=== PATIENT | female | born 1950 | race Caucasian/White ===

== ENCOUNTER 2019-03-24 07:40 | Outpatient (CLI) | payer MEDICARE, OTHER, SELFPAY ==
--- NOTE | 2019-03-24 08:00 | USCV_ITS ---
Mindi Quispe Age: 69 Gender: F : 1950 Exam Date: 03/24/2019 08:06 Ordering Phys: Pati Dyer MD Technologist: Cecilia Hernandez Exam Location: [facility] – [place] Indication: LT CAROTID BRUIT Risk Factors: Previous Vascular Surgery: None Right Brachial BP: / Left Brachial BP: / Right Left Velocity (cm/s) Spectral Plaque Velocity (cm/s) Spectral Plaque Syst/Diast Broadening Syst/Diast Broadening 91.50/ 14.30 Prox CCA 90.10 / 12.90 69.70/ 10.10 Mid CCA 79.80 / 14.60 65.10/ 12.10 Distal CCA 85.80 / 18.90 93.80/ 14.10 Prox ICA 109.40/ 16.40 77.80/ 11.30 Mid ICA 82.80 / 14.30 71.30/ 14.10 Distal ICA 73.60 / 15.30 81.60 ECA 85.80 1.34 ICA/CCA 1.37 Antegrade Vertebral Antegrade 57.20/ 9.40 cm/s 46.50/ 13.30 cm/s Bi Subclavian Bi 105.0 64.50 0 FINDINGS Moderate atherosclerotic plaque at both carotid bifurcations. CONCLUSIONS Negative for significant carotid stenosis or occlusion. Dr. Zaida Hutton MD (Electronically Signed) Final Date: 24 March 2019 09:37 S
--- NOTE | 2019-03-24 08:45 | USCV_ITS ---
Mindi Quispe Age: 69 Gender: F : 1950 Exam Date: 03/24/2019 08:36 Ordering Phys: Pati Dyer MD Technologist: Cecilia Hernandez Exam Location: [facility] – [place] Indication: LT LEG PAIN, PVD Risk Factors: Previous Vascular Surgery: None RIGHT LEFT BP: 200.0 / BP: 224.0/ 0 0 Waveform Velocity (cm/s) Velocity (cm/s) Waveform Biphasic 145.7 Iliac Prox 65.1 Monophasic Biphasic 145.7 Iliac Mid 82.1 Monophasic Biphasic 141.0 Iliac Distal 74.2 Monophasic Biphasic 143.0 FLOOR STEWARD/STEWARDESS 63.7 Monophasic Biphasic 141.2 SFA Prox 57.6 Monophasic Biphasic 74.3 SFA Mid 59.9 Monophasic Biphasic 67.9 SFA Dist 52.9 Monophasic Biphasic 45.7 POP 23.7 Monophasic Biphasic 32.7 CASING IN LINE FEEDER 27.6 Monophasic Biphasic 45.1 DPA 20.6 Monophasic CHIOMA 0.2 0.8 FINDINGS Abnormal resting ABIs bilaterally Biphasic Doppler waveforms in the right side Monophasic continuous low velocity Doppler waveforms in the left side CONCLUSIONS Severely diminished resting CHIOMA of 0.2 on the left side, suggestive of high-grade lesion in the proximal iliac artery with possible collateral filling. Mild peripheral artery disease on the right side with an CHIOMA of 0.84 Dr Alissa Castillo MD [facility] (Electronically Signed) Final Date: 25 March 2019 00:06 S
== END 2019-03-24 07:41 | disposition home or self-care (01) ==
PROVIDERS: Family Provider Family Medicine; PCP Family Medicine; Visit Provider Family Medicine
DX: I73.9 Peripheral vascular disease, unspecified (principal); M79.605 Pain in left leg; R09.89 Other specified symptoms and signs involving the circulatory and respiratory systems
CPT/HCPCS: 93880; 93925

== ENCOUNTER → 2019-04-25 13:50 | Outpatient (BNVA) | payer MEDICARE, OTHER, SELFPAY | PROVIDERS: Family Provider Family Medicine; PCP Family Medicine; Referring Provider Family Medicine; Visit Provider Internal Medicine Cardiovascular Disease | DX: I73.9 Peripheral vascular disease, unspecified (principal); I10 Essential (primary) hypertension | CPT/HCPCS: 80048 ==

== ENCOUNTER 2019-05-04 10:25 | Outpatient (CLI) | payer MEDICARE, OTHER, SELFPAY ==
--- NOTE | 2019-05-04 10:30 | CT_ITS ---
WS: [id number] CT ANGIOGRAPHY OF THE ABDOMINAL AORTA WITH RUNOFF TO THE ANKLES HISTORY: Peripheral vascular disease/ Lifestyle limiting claudication TECHNIQUE: Arterial injection is performed during imaging to evaluate the aorta and runoff vessels to the ankles. MIP and volume rendering imaging has also been performed. All images are reviewed. All C T scans at [facility] use at least one of these dose optimization techniques: automated ex posure control; mA and/or kV adjustment per patient size (includes targeted exams where dose is match ed to clinical indication); or iterative reconstruction. Contrast: Omnipaque 350; 95 mL IV. DLP: 1047.54 mGy.cm COMPARISON: 03/24/2019 Chronic emphysematous changes at the lung bases. Mild enlargement of the heart chambers. Single galls tone noted in the gallbladder. Early enhancement of the liver, pancreas, spleen, adrenal glands and k idneys demonstrates no acute abnormalities. There are a few small cortical cysts in the RIGHT kidney. No adenopathy or free fluid. Abdominal aorta: Extensive calcified and noncalcified plaque throughout the abdominal aorta. Some of plaque is irregular with some mild stenosis in the distal aorta just above the bifurcation. Calcified plaque at the origins of the celiac axis and SMA. No significant stenosis. Very heavy calcification in the splenic artery. Inferior mesenteric artery still patent. RIGHT lower extremity arterial system: Heavy calcified plaque at the origin of the RIGHT common iliac artery. Significant stenosis greater than 70%. Distal common iliac artery is patent with calcified p laque. Multifocal areas of mild stenosis throughout the external iliac to the femoral artery. Focal s tenosis of 71% in the RIGHT common femoral artery. Superficial femoral artery and deep profunda are b oth intact with mild multilevel areas of stenosis. Popliteal artery is normal caliber. Three-vessel r unoff to the ankle although the arteries are small. LEFT lower extremity arterial system: Moderate calcified plaque and intimal thickening involving the origin and proximal common iliac artery. Multifocal stenosis throughout the common iliac artery. Ther e is significant stenosis with complete occlusion at the bifurcation. External iliac artery is comple tely occluded. Reconstitution of the artery in the distal common femoral artery. There is still calci fied plaque. Profunda and superficial femoral artery are small caliber. There is additional plaque of 50% stenosis of the distal SFA. 54% stenosis at the LEFT popliteal artery. Three-vessel runoff to th e ankle although the arteries are very small caliber. Thoracolumbar scoliosis and degenerative disc disease and osteopenia. There is a small amount of free fluid in the pelvis. Cystic collection in the LEFT adnexa measures 2. [address]/CT angio abd aorta runof [id number] IMPRESSION: 1. 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 2. 54% stenosis LEFT popliteal artery. 3. 70% stenosis origin RIGHT common iliac artery. 4. Multifocal areas of mild stenosis throughout the RIGHT external iliac arter y to the femoral artery. 5. RIGHT common femoral artery stenosis 71%. Visually the stenosis appears indio ser to 50%. 6. Small amount of free fluid in the pelvis and a LEFT adnexal cystic collecti on. Recommend follow-up transvaginal imaging. Etiology of fluid is not determin ed. 7. Cholelithiasis without acute cholecystitis. 8. Mild abdominal aorta stenosis at the bifurcation.
[2019-05-04] MEDS: iohexol 350 mg/mL 100 mL Btl IV (11:08)
== END 2019-05-04 10:26 | disposition home or self-care (01) ==
LOC: CT 10:28
PROVIDERS: Family Provider Family Medicine; PCP Family Medicine; Visit Provider Internal Medicine Cardiovascular Disease
DX: I74.5 Embolism and thrombosis of iliac artery (principal); K80.20 Calculus of gallbladder without cholecystitis without obstruction; I71.4 Abdominal aortic aneurysm, without rupture; I70.292 Other atherosclerosis of native arteries of extremities, left leg; I70.92 Chronic total occlusion of artery of the extremities
CPT/HCPCS: 75635

== ENCOUNTER → 2019-08-12 08:40 | Outpatient (BNVA) | payer MEDICARE, OTHER, SELFPAY | PROVIDERS: Family Provider Family Medicine; PCP Family Medicine; Visit Provider Internal Medicine Cardiovascular Disease | DX: I73.9 Peripheral vascular disease, unspecified (principal) | CPT/HCPCS: 80048; 85025 ==

== ENCOUNTER 2019-08-17 07:41 | Day surgery (SDC) | payer MEDICARE, OTHER, SELFPAY ==
[2019-08-13 20:02] LABS: Quest SARS-CoV-2 RNA NOT DETECTED (NOT DETECTED)
[2019-08-16 12:57] VITALS: BMI 20.9
[2019-08-17] VITALS (20 sets, daily range): BP systolic 131–244; BP diastolic 55–107; PULSE 83–100; RESP 14–16; TEMP 36.8–37; O2SAT 91–97
--- NOTE | 2019-08-17 07:30 | XACV_ITS ---
Wt: 54 kg BSA: 1.54 m2 Gender: Female : 1950 Exam Type: Invasive Peripheral Vascular Procedure(s): Procedure Description: Peripheral Cath Diagnostic Procedure Procedure Description: Abdominal aortic angiography Procedure Description: Lower extremities' angiography Procedure Description: Peripheral vascular Intervention Procedure Description: PV Balloon Procedure Description: PV Atherectomy Exam Priority: Routine Lower Extremity Interventional Findings Posterior tibial approach of the left leg was adopted to cross the proximal mid SFA common femoral, external iliac and common iliac artery into the aorta. Viper wire was exchanged through seeker catheter. CSI atherectomy using 2 mm bur was performed in left common iliac, left external iliac, left common femoral and proximal left SFA followed by multiple balloon angioplasty using Red Bud 6 x 100 x 135 mm balloon in common iliac, external iliac, common femoral and proximal femoral artery with good angiographic result. Good two-vessel runoff was noted below the knee however we try to approach proximal anterior tibial artery which is chronically occluded through left posterior tibial artery due to acute angle we were not able to cross therefore it was decided to see how patient performe if she continues to be symptomatic with claudication we may will bring her back and go from right common femoral approach to open up left anterior tibial artery, otherwise patient has reasonable good flow now in the leg and foot , patient has good dopperlable pule both anterior and posterior tibial area therefore we will accept the result now. Conclusions Peripheral Procedure Description: Critical limb ischemia of the left leg and foot , Altha grade V :Edward stage IV. Procedure #1 Abdominal aorta: Luminal irregularities #2 Right and left renal arteries not well visualized #3 Right common iliac artery has luminal irregularities #4 Left common iliac artery has severe stenosis, left external iliac artery is chronically occluded #5 Left and right internal iliac artery has luminal irregularity #6 Left common femoral artery is chronically occluded#7 Left profunda femoral artery has luminal irregularity#8 Proximal left SFA has severe disease #9 Left mid to distal SFA, popliteal, tibioperoneal trunk has luminal irregularities. #10 Left tibioperoneal trunk and anterior tibial artery has proximal chronic occlusion which reconstitute in the mid to distal segment#11 Left posterior tibial artery has luminal irregularities. Recommendations 1-Return to inpatient for close monitoring and routine cath care 2-Risk factor modification for secondary prevention 3-Statin and aspirin 81 mg life--long, if tolerated 4-Continue Plavix 75mg p.o. daily for at least one year. We will assess at the end of one year again to continue if further or not 5-Continue optimal medical management 6-Follow up with Dr. Shah in four weeks and your primary care in 10 days. Hemodynamic Data Phase:Rest AO : / ( 16.0 mmHg ) @ 4:05:00 AM Access Site Site: Left Femoral artery Sheath Size: 6 Fr Hemost... Success: Unsuccessful Procedure Details Findings Procedure Consent Obtained. Pre-Procedure Time Out. Identified patient by full name and date of as verbalized by the patient/guarantor. Does the consent match the physician's order: Yes. Accurate & Complete Informed Consent: Yes. Inpatient/Outpatient History & Physical on Chart: Yes. If H&P is completed, is and addenduem needed: Yes; If yes, is the addendum complete: N/A. Visualize and Verify Site with Patient/Guarantor: N/A. Relevant Radiology Images available: N/A. The risks, benefits, and alternatives of sedation and/or procedure were discussed by physician. The patient agrees to continue. Procedure started. Correct patient, site and procedure confirmed by cath team. Current diagnosis: PVD. PERRLA. Strong, equal hand towel sewer bilaterally. Lungs clear x 5 lobes. IV Site on Arrival: 20 gauge in the left anticubital. IV Fluids: 0.9% NaCl at KVO. 0 mL infused prior to dairy and food laboratory assistant. Pre Procedural Pulses: left dorsalis pedis was Doppled. Pre Procedural Pulses: right dorsalis pedis was 2+. Pre Procedural Pulses: left posterior tibial was Doppled. Pre Procedural Pulses: right posterior tibial was 1+. Oxygen started at 2liters/min via nasal canula. bilateral groins was prepped with chloroprep then draped in the usual sterile fashion. And left lower leg. Physician notified. Baseline sample Acquired. HR: 90 BPM. Equipment: 6F - Femoral. Patients medications: AVRIL inhibitor, Beta lizandro, Non-statin, statin. Physician arrived. Physician scrubbed in. Time out performed with cath team. Lidocaine 1% infiltrated to the left pedal access. Arterial access obtained. glidewire insertedseated left iliac. Seeker inserted in over the glidewire. wire out. glidewire reinserted and Seeker removed. 6Fr pigtail inserted over the glidewire seated in the distal aorta, glidewire out. Abdominal aortogram performed in AP @ 10 mL/sec for a total of 30 mL. glidewire inserted. pigtail catheter removed over the glide wire. inserting the Seeker, glidewire out and the Viper wire inserted. Seeker out and Orion inserted. atherectomy performed, left iliac area. dorothy removed. Inflation number : 1 A AB ARMADA 35 OTW [id number] was prepped and advanced across the Ostial Common Iliac, Left , then inflated to 6 THANH for 1:01 seconds. Inflation number: 2 The AB ARMADA 35 OTW [id number] was reinflated across the Ostial Common Iliac, Left, to 8 THANH for 1:05 seconds. Inflation number: 3 The AB ARMADA 35 OTW [id number] was reinflated across the Ostial Common Iliac, Left, to 8 THANH for 1:02 seconds. balloon out inserting the Seeker over the Viper wire. Viperwire out, checking results. Command wire inserted. Milena circulating, Ayo scrubbing. Command wire out, glidewire inserted. glidewire out. hand injection performed. glide wire inserted. inserting the command wire. command wire out. Runthru wire inserted. runthru out. Seeker out over the glidewire. inserting the Yair-cross catheter over the glide wire. Navicross removed over glide. inserting the UF catheter over the glide wire seated at the anterior trunk. UF removed. UF reinserted over the glide wire. UF out and Seeker inserted. Seeker out and a IM catheter inserted over the glide wire. glidewire out, hand injection performed. IM catheter out. TR band placed. Hemostasis obtained. Post Procedure: Pulses reassessed and unchanged. PERRLA. Strong, equal hand towel sewer bilaterally. No VTE prophylaxis required. Medication's Wasted: Lidocaine 1% = 12 mL. Medication's Wasted: Nitro = 49 mg. Medication's Wasted: Heparin = 1000 Units. Medication's Wasted: Hydralazine = 10 mg. Medication's Wasted: Fentnyl = 25 mcg. Total IV fluids: 160 mL. Fluoro: 46:05. Contrast type used: Visipaque 320 mgI/mL, 500 mL bottle. Qsffhfpdi99.6mL. PCI Indication: PVD. Post-op diagnosis: PVD. Complications: none. Estimated blood loss: 5mL-10mL. Procedure completed. Patient transferred by bed to 1st floor. Procedure Medications Start: 9:14 AM Stop: 9:14 AM Medication: Hydralazine Amount: 10 mg Route: I.V. Start: 9:15 AM Stop: 9:15 AM Medication: Fentanyl Amount: 50 mcg Route: I.V. Start: 9:15 AM Stop: 9:15 AM Medication: Versed Amount: 1 mg Route: I.V. Start: 9:21 AM Stop: 9:21 AM Medication: Versed Amount: 1 mg Route: I.V. Start: 9:21 AM Stop: 9:21 AM Medication: Fentanyl Amount: 50 mcg Route: I.V. Start: 10:03 AM Stop: 10:03 AM Medication: Fentanyl Amount: 50 mcg Route: I.V. Start: 10:03 AM Stop: 10:03 AM Medication: Versed Amount: 1 mg Route: I.V. Start: 10:06 AM Stop: 10:06 AM Medication: Hydralazine Amount: 10 mg Route: I.V. Start: 9:40 AM Stop: 9:40 AM Medication: Heparin Amount: 5000 units Route: I.V. Start: 10:27 AM Stop: 10:27 AM Medication: Heparin Amount: 3000 units Route: I.V. Start: 10:30 AM Stop: 10:30 AM Medication: Versed Amount: 1 mg Route: I.V. Start: 10:30 AM Stop: 10:30 AM Medication: Fentanyl Amount: 50 mcg Route: I.V. Start: 10:53 AM Stop: 10:53 AM Medication: Hydralazine Amount: 10 mg Route: I.V. Start: 11:09 AM Stop: 11:09 AM Medication: Versed Amount: 1 mg Route: I.V. I, the attending physician, have reviewed and verified all procedure medications. Yes, all medications given per verbal order History/Risk Factors Hypertension: Yes Dyslipidemia: Yes Peripheral Arterial Disease (PAD): Yes Myocardial Infarction (MD): No Obesity: No Renal Disease: No Tobacco Use: Current/Recent(w/in 1 year) Prior Interventions PCI: No CABG: No Valve Surgery: No Report Signatures Finalized by:Lara Shah MD on 08/28/2019 1:46:14 PM
--- NOTE | 2019-08-17 08:49 | USCV_ITS ---
Quispe Augustina Age: 69 Gender: F : 1950 Exam Date: 08/17/2019 09:17 Ordering Phys: Lara Shah MD ([email or web address]) Technologist: Megan Pope Exam Location: [facility] – [place] Indication: Findings Vascular guidance provided in Junior Accountant for ROCK CUTTER Doppler flow velocity appears to be markedly diminished Conclusions The posterior tibial artery appeared to be patent. Markedly diminished Doppler flow signals Dr Alissa Castillo MD [facility] (Electronically Signed) Final Date: 17 August 2019 19:09 S
[2019-08-17] MEDS: diphenhydrAMINE 50 mg Capsule PO (08:50)
--- NOTE | 2019-08-17 08:54 | P.HP_ITS ---
Providers/Chief Complaint Primary Care Provider: Pati Dyer MD Chief Complaint: l73.9 History of Present Illness 69-year-old female patient of Dr. Dyer past medical history significant for uncontrolled hypertension, [id number] of smoking which is continuous she has been sent to us for lifestyle limiting claudication more on left than right. According to the patient she cannot walk more than 50 to 100 yards before sitting down.Patient has ruborous left foot with black toenail and nonhealing small wound. She has nonpalpable left foot pulses anterior and Posterior tibial. ABIs 0.2 on the left and 0.84 on the right. For lifestyle limiting claudication worsening of left foot patient underwent CTA which confirmed complete occlusion of left external iliac reconstitute at left common distal femoral there was moderate disease of popliteal with reasonable runoff. Since patient failed conservative management and it is hindering her lifestyle today she is here for peripheral angiogram and intervention if indicated. Patient has been explained all risk benefit and alternative for the procedure. Patient has been explained regarding FDA warning for drug-coated balloon with high mortality in that group. Patient would like to proceed with it and if indicated she would like to use drug-coated balloon or stents. She understands risk of embolization no reflow acute leg leading to emergent surgery. She understands risk of bleeding infection and . She would like to proceed with it. Medications/Allergies Home Medications Medication Instructions Recorded Confirmed Last Taken Type cholecalciferol (vitamin D3) 25 1,000 unit PO DAILY 04/25/19 08/17/19 08/17/19 06:00 History mcg (1,000 unit) capsule lisinopril 40 mg tablet 40 mg PO DAILY 04/25/19 08/17/19 08/17/19 06:00 History lovastatin 20 mg tablet 20 mg PO DAILY 04/25/19 08/17/19 08/16/19 17:00 History metoprolol tartrate 25 mg tablet 25 mg PO BID 04/25/19 08/17/19 08/17/19 06:00 History multivitamin 1 tab PO DAILY 04/25/19 08/17/19 08/17/19 06:00 History naproxen sodium 220 mg tablet 220 mg PO BID PRN 04/25/19 08/16/19 Unknown History vitamin B complex 1 tab PO DAILY 04/25/19 08/17/19 08/17/19 06:00 History cilostazol 50 mg tablet 50 mg PO BID 90 Days #180 tab 06/21/19 08/17/19 08/17/19 06:00 Rx fish,bora,flax oils-om3,6,9no1 1 cap PO DAILY 08/16/19 08/17/19 08/17/19 06:00 History [[place] 3-6-9] Allergies Allergy/AdvReac Type Severity Reaction Status Date / Time No Known Allergies Allergy Unverified 08/16/19 12:44 PFSH Acute PFSH: Medical History HTN (hypertension) Hyperlipidemia PVD (peripheral vascular disease) Family History Grandmother Myocardial infarction Mother Chronic kidney disease (CKD) Father Cancer Lung CA Social History Smoking and tobacco status: current every day smoker History of recent travel: No Vitals/I&O/Wt Last Vital Signs Temp 98.6 F 08/17/19 08:35 Pulse 86 08/17/19 08:35 Resp 16 08/17/19 08:35 BP 244/107 08/17/19 08:35 Pulse Ox 97 08/17/19 08:35 Weight last 48 hrs Weight 118 lb Physical Exam Narrative: EXAM NARRATIVE: GENERAL: Patient is alert, awake and oriented x3. NECK: No jugular vein distension. HEENT: No cyanosis. No icterus. No pallor. HEART: Regular S1 and S2. No murmur, rub or gallop. LUNGS: Clear to auscultate bilaterally. ABDOMEN: Soft, nontender and nondistended. Positive bowel sounds. No guarding, rebound or tenderness. CENTRAL NERVOUS SYSTEM: Grossly nonfocal. EXTREMITIES: Lower extremities ruborous left foot without palpable pulse. Blackish toe nail Data Other Labs: CT ANGIOGRAPHY OF THE ABDOMINAL AORTA WITH RUNOFF TO THE ANKLES HISTORY: Peripheral vascular disease/ Lifestyle limiting claudication TECHNIQUE: Arterial injection is performed during imaging to evaluate the aorta and runoff vessels to the ankles. MIP and volume rendering imaging has also been performed. All images are reviewed. All CT scans at [facility] use at least one of these dose optimization techniques: automated exposure control; mA and/or kV adjustment per patient size (includes targeted exams where dose is matched to clinical indication); or iterative reconstruction. Contrast: Omnipaque 350; 95 mL IV. DLP: 1047.54 mGy.cm COMPARISON: 03/24/2019 Chronic emphysematous changes at the lung bases. Mild enlargement of the heart chambers. Single gallstone noted in the gallbladder. Early enhancement of the liver, pancreas, spleen, adrenal glands and kidneys demonstrates no acute abnormalities. There are a few small cortical cysts in the RIGHT kidney. No adenopathy or free fluid. Abdominal aorta: Extensive calcified and noncalcified plaque throughout the abdominal aorta. Some of plaque is irregular with some mild stenosis in the distal aorta just above the bifurcation. Calcified plaque at the origins of the celiac axis and SMA. No significant stenosis. Very heavy calcification in the splenic artery. Inferior mesenteric artery still patent. RIGHT lower extremity arterial system: Heavy calcified plaque at the origin of t he RIGHT common iliac artery. Significant stenosis greater than 70%. Distal common iliac artery is patent with calcified plaque. Multifocal areas of mild stenosis throughout the external iliac to the femoral artery. Focal stenosis of 71% in the RIGHT common femoral artery. Superficial femoral artery and deep profunda are both intact with mild multilevel areas of stenosis. Popliteal artery is normal caliber. Three-vessel runoff to the ankle although the arteries are small. LEFT lower extremity arterial system: Moderate calcified plaque and intimal thickening involving the origin and proximal common iliac artery. Multifocal stenosis throughout the common iliac artery. There is significant stenosis with complete occlusion at the bifurcation. External iliac artery is completely occluded. Reconstitution of the artery in the distal common femoral artery. There is still calcified plaque. Profunda and superficial femoral artery are small caliber. There is additional plaque of 50% stenosis of the distal SFA. 54% stenosis at the LEFT popliteal artery. Three-vessel runoff to the ankle although the arteries are very small caliber. Thoracolumbar scoliosis and degenerative disc disease and osteopenia. There is a small amount of free fluid in the pelvis. Cystic collection in the LEFT adnexa measures 2.[address]/CT angio abd aorta runof [id number] IMPRESSION: 1. 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 2. 54% stenosis LEFT popliteal artery. 3. 70% stenosis origin RIGHT common iliac artery. 4. Multifocal areas of mild stenosis throughout the RIGHT external iliac artery to the femoral artery. 5. RIGHT common femoral artery stenosis 71%. Visually the stenosis appears closer to 50%. 6. Small amount of free fluid in the pelvis and a LEFT adnexal cystic collection. Recommend follow-up transvaginal imaging. Etiology of fluid is not determined. 7. Cholelithiasis without acute cholecystitis. 8. Mild abdominal aorta stenosis at the bifurcation. A&P Assessment and plan (1) PVD (peripheral vascular disease): Patient has lifestyle limiting claudication, patient has failed conservative management. Patient is developing critical limb ischemia. It is the reason she has brought in today for peripheral angiogram and intervention as defined above. Patient has given me consent after carefully reviewing risk benefit and alternative for the procedure. She would like to proceed with it. Status: Acute (2) HTN (hypertension): Patient has hypertensive urgency her systolic blood pressure 244/107 I will start her on nitro drip to get her blood pressure under control before proceeding with angiogram. Status: Acute Attestations Medical Necessity Statement*: I am expecting her stay not to cross more than 1 midnight Coding Level of Care Code New Pt Acute Rolling Down Machine Operator for Chg Fwd Patient Type New History Expanded Problem Focused Exam Expanded Problem Focused Medical Decision Making Moderate Complexity Diagnoses PVD (peripheral vascular disease) I73.9 HTN (hypertension) I10
--- NOTE | 2019-08-17 09:10 | W.PM.OPSUD ---
Surgery/Procedure H&P Update DATE OF PROCEDURE: August 17, 2019 DATE H&P PERFORMED: 08/17/19 H&P UPDATE INFORMATION: I have examined patient prior to procedure and No changes to prior documentation PREOP DIAGNOSIS: Hypertensive urgency/lifestyle limiting ischemia PLANNED PROCEDURE: Operation Date: 08/17/19 08:30 Proposed Procedures p Peripheral Diagnostic(Bilateral) - Lara Shah MD PATIENT REASSESSED PRIOR TO SEDATION, WITH NO CHANGE NOTED: Yes PHYSICAL EXAM: alert, oriented x 3 and clear to auscultation bilaterally AIRWAY EVAL/ANESTHESIA PLAN: normal airway, ASA II, Risks, benefits & alternatives of sedation and/or procedure discussed and Patient agrees to continue as planned
[2019-08-17] MEDS: clopidogrel 300 mg Tablet PO (13:28)
--- NOTE | 2019-08-17 15:22 | PC.NURSE ---
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
--- NOTE | 2019-08-17 16:05 | PC.NURSE ---
received from cardiac computer lab aide at 1230.report received.pt is alert and awake.denies pain.sr on monitor.left posterior tibial artery with tr bands on x 2.no hematoma noted.left foot is cold to touch..michelle.no dp pulse dopplerable.pt pulse is palpable distal to tr band.this is same assessment as computer lab aide's assessment.pt instructed in activity restrictions s/p pt artery proedure..and instructed to notify staff for any bleeding,pain,numbness..or for any concerns at all.pt verb understanding of instructions.
--- NOTE | 2019-08-17 16:12 | PC.NURSE ---
proximal tr band had slowly been deflated and finally removed at 1530.distal (or primary tr band) slowly deflated ,and finally removed at 1615.no hematoma noted.site dressed with 2x2 guaze and secured with opsite.instructed pt in activity restrictions s/p tr band removal...and instructed to notify staff for any bleeding,pain,numbness..or for any concerns at all.pt verb understanding of instructions.
--- NOTE | 2019-08-17 16:30 | PC.NURSE ---
left foot is now warm to touch and rubra in color.palpable pt pulse remains.no dp pulse dopplerable (dr reyna aware-he states he plans on bringing pt back for further surgery in near future)
[2019-08-17] MEDS: metoprolol tartrate 25 mg Tablet PO (17:31)
--- NOTE | 2019-08-17 18:16 | PC.NURSE ---
pt's left foot now has a dopplerable dp pulse! let foot is warm to touch.no hematoma noted at post cath insertion.drsg remains dry and intact.
--- NOTE | 2019-08-17 19:10 | PC.NURSE ---
Received bedside report from LIBRA Sinha. Patient resting in bed. Patient is s/p peripheral angiogram via left posterior tibial access. Dressing in place. No s/s of bleeding or hematoma formation observed Patient has doppled pulses to left lower extremities. Patient left foot is pink and warm to touch. Patient denies pain to site. Discussed plan of care. Patient verbalized understanding.
--- NOTE | 2019-08-17 19:35 | PC.NURSE ---
Dr Shah in with patient. Dr discussed procedure with patient and next plan of action if needed. Patient verbalized complete understandin. Assessment performed as documented. Assisted patient up to bathroom. Patient tolerated well. Left proximal ankle dressing remains c,d,i. No s/s of bleeding or hematoma formation observed. Discussed elevated BP with patient. Patient stated, My blood pressure always is high when I have to see a doctor or spend time in the hospital otherwise my blood pressure is pretty normal. Patient denies headache or dizziness. No distress observed.
[2019-08-17] MEDS: temazepam 15 mg Capsule PO (21:48)
--- NOTE | 2019-08-17 21:50 | PC.NURSE ---
Patient reports feeling restless and unable to sleep. Patient requested something for sleep which was administered as ordered and documented in MAR. Instructed patient on Restoril to include side effects. Patient verbalized understanding.
--- NOTE | 2019-08-17 21:55 | PC.NURSE ---
Fluids stopped per Dr Shah request..
[2019-08-18 00:13] VITALS: BP 135/63; PULSE 84; RESP 22; TEMP 36.7; O2SAT 93
--- NOTE | 2019-08-18 03:47 | PC.NURSE ---
Patient resting in bed with eyes closed and even respirations noted. Dressing to left ankle remains c,d,i. No s/s of bleeding or hematoma formation observed.
[2019-08-18 05:01] VITALS: BP 164/78; PULSE 85; RESP 18; TEMP 36.8; O2SAT 93
[2019-08-18 05:17] LABS: Basophils # 0.1 10^3/uL (0.0-0.1); Eosinophils # 0.2 10^3/uL (0.0-0.8); Eosinophils % 2.9 %; Hematocrit 40.2 % (37.0-47.0); Hemoglobin 13.3 g/dL (11.5-15.3); Lymphocytes # 1.1 10^3/uL (0.8-4.8); Lymphocytes % 15.4 %; Mean Corpuscular HGB Conc 33.1 g/dL (30.0-36.0); Mean Corpuscular Hemoglobin 29.8 pg (28.0-34.0); Mean Corpuscular Volume 90.1 fL (81-99); Mean Platelet Volume 9.6 fL (7.4-10.4); Monocytes # 0.9 10^3/uL (0.2-0.9); Monocytes % 12.6 %; Neutrophils # 4.9 10^3/uL (1.8-7.7); Neutrophils % 67.8 %; Nucleated Red Blood Cells % 0 %; Platelet Count 226 10^3/cmm (130-400); Red Blood Count 4.46 10^6/uL (4.1-5.3); Red Cell Distribution Width 15.1 % (12.1-15.1); White Blood Count 7.2 10^3/uL (4.0-10.0)
[2019-08-18 05:28] LABS: Anion Gap 14.2 (5-19); Blood Urea Nitrogen 14 mg/dL (8-23); Calcium 9.2 mg/dL (8.5-10.5); Carbon Dioxide 22 mmol/L (22-29); Chloride 102 mmol/L (98-107); Creatinine Clr Calc Pharmacy 49.9135; Glomerular Filtration Rate 62.3 mL/min (90-130); Glucose 100 mg/dL (65-115); Osmolality Calculated 274 mOsm/kg (285-295); Potassium 4.2 mmol/L (3.5-5.1); Sodium 134 mmol/L (136-145)
[2019-08-18 07:12] VITALS: BP 168/79; PULSE 86; RESP 18; TEMP 36.8; O2SAT 93
[2019-08-18] MEDS: atorvastatin 40 mg Tablet 20 MG PO (09:17)
[2019-08-18] MEDS: metoprolol tartrate 25 mg Tablet PO (09:18)
[2019-08-18] MEDS: aspirin 325 mg EC Tablet PO (09:18)
[2019-08-18 11:23] VITALS: BP 168/79; PULSE 86; RESP 18; TEMP 36.3; O2SAT 93
--- NOTE | 2019-08-18 11:24 | PM.DCS ---
Discharge Providers Date of Discharge: August 18, 2019 Attending Provider at Discharge: Lara Shah MD Primary Care Provider: Pati Dyer MD Diagnoses at Discharge Discharge Diagnosis (1) PVD (peripheral vascular disease): Status: Acute (2) HTN (hypertension): Status: Acute Reason for Visit Reason for Visit: l73.9 Hospital Course Hospital Course: 69-year-old female past medical history significant for uncontrolled hypertension, history of tobacco abuse, history of severe peripheral vascular disease, hyperlipidemia underwent peripheral angiogram through posterior tibial approach for critical limb ischemia. Left-sided common iliac which was significant and severely diseased, left external iliac and distal common femoral artery which was chronically occluded was treated with CSI atherectomy followed by balloon angioplasty resulted in excellent angiographic result and good flow. Below the knee one-vessel runoff was noted left anterior tibial and peroneal was known to be occluded chronically. Left anterior tibial was attempted from the posterior tibial approach but due to acute angle we were not able to cross into it. Since it reconstitute through the distal collaterals we thought that it will be managed conservatively however if she continues to have claudication I may will bring her back from right common femoral approach. Overnight patient did fine without any complication. She is walking around without any pain. She has good palpable posterior tibial pulses while anterior tibial are dopplerable. Her foot color looks good warm moist and pinkish. Blood pressure is also reasonable control now. She is advised to take Plavix for next 3 months. She is advised to follow-up with primary care physician Dr. Dyer. Patient has been encouraged to call me if she has any problem. Physical Exam Narrative: EXAM NARRATIVE: GENERAL: Patient is alert, awake and oriented x3. NECK: No jugular vein distension. HEENT: No cyanosis. No icterus. No pallor. HEART: Regular S1 and S2. No murmur, rub or gallop. LUNGS: Clear to auscultate bilaterally. ABDOMEN: Soft, nontender and nondistended. Positive bowel sounds. No guarding, rebound or tenderness. CENTRAL NERVOUS SYSTEM: Grossly nonfocal. EXTREMITIES: Lower extremities pinkish warm left foot and leg, palpable posterior tibial and dopplerable anterior tibial pulse. Left posterior tibial entry wound looks good and healing nicely. Const: COMMON NORMALS: alert Resp: COMMON NORMALS: clear to auscultation bilaterally AUSCULTATION: clear to auscultation bilaterally Neuro: SENSORIUM/ORIENTATION: Yes alert Discharge Data Data Completed and Pending: Completed Studies During Hospitalization Category Date Time Status CV guide vascular access 91341 Rout ine Ultrasound 08/17/19 08:49 Completed Pending at discharge Category Date Time Status HOST/HOSTESS HEAD request for service Routin e Exams 08/17/19 07:30 Taken Labs from last 24 hours 08/18/19 08/18/19 04:23 04:23 WBC 7.2 RBC 4.46 Hgb 13.3 Hct 40.2 MCV 90.1 MCH 29.8 MCHC 33.1 RDW 15.1 Plt Count 226 MPV 9.6 Neut % (Auto) 67.8 Lymph % (Auto) 15.4 [place] % (Auto) 12.6 Eos % (Auto) 2.9 Baso % (Auto) 1.0 Neut # (Auto) 4.9 Lymph # (Auto) 1.1 [place] # (Auto) 0.9 Eos # (Auto) 0.2 Baso # (Auto) 0.1 Nucleated RBC % (a uto) 0 Nucleated RBCs # 0.0 Sodium 134 L Potassium 4.2 Chloride 102 Carbon Dioxide 22 Anion Gap 14.2 BUN 14 Creatinine 0.9 GFR Calculation 62.3 L Glucose 100 Calculated Osmolal ity 274 L Calcium 9.2 Vitals: Last Vital Signs Temp 98.3 F 08/18/19 07:12 Pulse 86 08/18/19 07:12 Resp 18 08/18/19 07:12 BP 168/79 08/18/19 07:12 Pulse Ox 93 08/18/19 07:12 Discharge Plan Discharge Patient Disposition: Home, Self-Care Condition: Stable Prescriptions: New Adult Aspirin Regimen 81 mg tablet,delayed release (DR/EC) 81 mg PO DAILY Qty: 90 RF: 3 Protonix 40 mg tablet,delayed release (DR/EC) 40 mg PO DAILY 28 Days Qty: 30 RF: 3 clopidogrel 75 mg tablet 75 mg PO DAILY Qty: 90 RF: 0 Continued vitamin B complex Tablet 1 tab PO DAILY RF: 0 multivitamin Tablet 1 tab PO DAILY RF: 0 lisinopril 40 mg tablet 40 mg PO DAILY RF: 0 lovastatin 20 mg tablet 20 mg PO DAILY RF: 0 metoprolol tartrate 25 mg tablet 25 mg PO BID RF: 0 cholecalciferol (vitamin D3) 25 mcg (1,000 unit) capsule 1,000 unit PO DAILY RF: 0 [place] 3-6-9 1,200 mg Capsule 1 cap PO DAILY RF: 0 Discontinued naproxen sodium [Aleve] 220 mg tablet 220 mg PO BID PRN (Reason: Pain) RF: 0 cilostazol 50 mg tablet 50 mg PO BID 90 Days Qty: 180 RF: 3 Discharge Orders: Discharge Order (Routine); Ordered 08/18/19 Ordered By: Lara Shah Referrals: Pati Dyer MD [Primary Care Provider] - 2 weeks Lara Shah MD [Physician] - Areli Celestin FNP [Nurse Practitioner] - (You have a follow up appointment on August 24 at 9:30 am with Areli Celestin.) Patient Instructions: Clopidogrel (By mouth), Pantoprazole (By mouth), Peripheral Vascular Angioplasty (DC) Activity Restrictions/Additional Instructions: Follow-up with Areli Celestin cardiology nurse practitioner in 7 days. Please keep a record of your blood pressure twice a day and bring it to Areli Celestin with you. Follow-up with Dr. Shah in 3 months. Discharge Attestations Time Spent in Discharge Care*: greater than 30 min Specific Discharge Activities: Specific discharge activities: educating patient Quality Metrics Clinical Quality Measures During this hospital stay, did patient experience: None Coding Level of Care Code Established Pt Acute Scrap Stripper Hand for Chg Fwd Patient Type Established Exam Expanded Problem Focused Medical Decision Making Moderate Complexity Diagnoses PVD (peripheral vascular disease) I73.9 HTN (hypertension) I10
== END 2019-08-18 11:45 | disposition home or self-care (01) ==
LOC: CCL 07:53 → CSU 08-18 11:20
PROVIDERS: Family Provider Family Medicine; PCP Family Medicine; Visit Provider Internal Medicine Cardiovascular Disease
DX: I70.222 Atherosclerosis of native arteries of extremities with rest pain, left leg (principal); I70.92 Chronic total occlusion of artery of the extremities; I10 Essential (primary) hypertension; E78.5 Hyperlipidemia, unspecified; F17.210 Nicotine dependence, cigarettes, uncomplicated
CPT/HCPCS: 0238T; 12345; 36415; 37220; 75625; 75710; 76937; 80048; 85025; 87635; C1724; C1725; C1769; C1887; C1894; J0360; J1644; J2001; J2250; J3010; J3490; J7030; Q0163; Q9967

== ENCOUNTER → 2019-08-25 10:15 | Outpatient (BNVA) | payer MEDICARE, OTHER, SELFPAY | PROVIDERS: Family Provider Family Medicine; PCP Family Medicine; Visit Provider Nurse Practitioner Family | DX: I73.9 Peripheral vascular disease, unspecified (principal); R09.89 Other specified symptoms and signs involving the circulatory and respiratory systems; M81.0 Age-related osteoporosis without current pathological fracture; Z85.41 Personal history of malignant neoplasm of cervix uteri; Z09 Encounter for follow-up examination after completed treatment for conditions other than malignant neoplasm | CPT/HCPCS: 80048 ==

== ENCOUNTER 2020-01-10 11:05 | Outpatient (CLI) | payer MEDICARE, OTHER, SELFPAY ==
--- NOTE | 2020-01-10 11:00 | USCV_ITS ---
Augustina Quispe Age: 69 Gender: F : 1950 Exam Date: 01/10/2020 11:23 Ordering Phys: Areli Celestin Technologist: Cecilia Hernandez Exam Location: [facility] – [place] Indication: CRITICAL LIMB ISCHEMIA, COLD FOOT, NO PULSES Risk Factors: Previous Vascular Surgery: RIGHT LEFT BP: 186.0 / 102.00 BP: 175.0/ 97.00 0 0 Waveform Velocity (cm/s) Velocity (cm/s) Waveform Iliac Prox 60.5 Monophasic Iliac Mid 66.3 Monophasic Iliac Distal 66.6 Monophasic SITE SUPERVISING TECHNICAL OPERATOR Monophasic 46.3 SFA Prox 82.7 Monophasic SFA Mid 52.1 Monophasic SFA Dist 43.2 Monophasic POP 22.9 Monophasic KEYMODULE ASSEMBLY SUPERVISOR N/A DPA N/A FINDINGS Monophasic and continuous waveforms throughout the left lower extremity No Doppler flow signals in the dorsalis pedis and posterior tibial artery on the left side No CHIOMA was performed CONCLUSIONS 1. Abnormal arterial Doppler waveforms, suggestive of collateral filling of the iliac, femoral and popliteal artery on the left side. Possible high-grade stenosis or occlusion at the level of the proximal common iliac or above #2. Possible total occlusion of the posterior tibial and dorsalis pedis artery on the left side No similar previous studies available for comparison Dr Alissa Castillo MD [facility] (Electronically Signed) Final Date: 10 January 2020 20:09 S
== END 2020-01-10 11:06 | disposition home or self-care (01) ==
PROVIDERS: Family Provider Family Medicine; PCP Family Medicine; Visit Provider Nurse Practitioner Family
DX: I70.222 Atherosclerosis of native arteries of extremities with rest pain, left leg (principal)
CPT/HCPCS: 93926

== ENCOUNTER 2020-01-11 16:40 | Observation (INO) | payer MEDICARE, OTHER, SELFPAY ==
[2020-01-11] VITALS (31 sets, daily range): BP systolic 111–189; BP diastolic 53–102; PULSE 73–100; RESP 15–30; TEMP 36.4–36.9; O2SAT 89–100
--- NOTE | 2020-01-11 09:48 | XACV_ITS ---
Wt: 51 kg BSA: 1.51 m2 Any Known Allergies: No known allergies Gender: Female : 1950 Exam Type: Invasive Peripheral Vascular Procedure(s): Procedure Description: Peripheral Cath Diagnostic Procedure Procedure Description: Lower extremities' angiography Procedure Description: Peripheral vascular Intervention Procedure Description: PV Balloon Exam Priority: Routine Lower Extremity Interventional Findings Left external iliac artery severe lesion was treated with balloon angioplasty using AB [place] 35 OTW 6 x 40 x 135 balloon followed by placement of Omnilink stent 7.0 x 59 mm. Excellent angiographic result with good flow was achieved.. Conclusions Peripheral Procedure Description: Lifestyle limiting claudication of left leg and foot , Martin grade V :Edward stage IV. Procedure Right common femoral approach was adopted. #1 Left and right common iliac artery has luminal irregularity #2 Left external iliac artery has severe 95% stenosis, right common iliac and external iliac artery has luminal irregularity without significant stenosis #3 Left and right Profunda femoral artery has luminal irregularity #5 Left and right internal iliac artery has luminal irregularities #6 Left and right common femoral artery has luminal irregularities. Right and left SFA has luminal irregularity #9 Right tibioperoneal trunk has luminal irregularity left tibioperoneal leg trunk is known to be chronically occluded. Left below the knee vessels were not well visualized appear to be chronically occluded including anterior posterior tibial and peroneal however collaterals below the knee were seen. Right side below the knee vessels are not well visualized. . Recommendations 1-Return to inpatient for close monitoring and routine cath care 2-Risk factor modification for secondary prevention 3-Statin and aspirin 81 mg life--long, if tolerated 4-Plavix 75mg p.o. daily for three months. We will assess at the end of one year again to continue if further or not 5-Continue optimal medical management 6-Follow up with Dr. Shah in four weeks and your primary care in 10 days. Hemodynamic Data Phase:Rest AO : 142.0 / 56.0 ( 93.0 ) @ 9:16:00 AM 48.0 / 35.0 ( 41.0 ) @ 9:47:00 AM 79.0 / 43.0 ( 60.0 ) @ 9:50:00 AM 160.0 / 80.0 ( 106.0 ) @ 10:05:00 AM 126.0 / 70.0 ( 91.0 ) @ 10:05:00 AM 168.0 / 108.0 ( 129.0 ) @ 10:06:00 AM 130.0 / 65.0 ( 91.0 ) @ 10:06:00 AM 185.0 / 74.0 ( 124.0 ) @ 10:12:00 AM Access Site Site: Right Femoral artery Sheath Size: 6 Fr Hemost... Method: Suture Hemost... Success: Successful Procedure Details Findings Procedure Consent Obtained. Pre-Procedure Time Out. Identified patient by full name and date of as verbalized by the patient/guarantor. Does the consent match the physician's order: Yes. Accurate & Complete Informed Consent: Yes. Inpatient/Outpatient History & Physical on Chart: Yes. If H&P is completed, is and addenduem needed: N/A; If yes, is the addendum complete: N/A. Visualize and Verify Site with Patient/Guarantor: N/A. Relevant Radiology Images available: Yes. Pre-op teaching completed and patient verbalized understanding. The risks, benefits, and alternatives of sedation and/or procedure were discussed by physician. The patient agrees to continue. Procedure started. Correct patient, site and procedure confirmed by cath team. PERRLA. Strong, equal hand retail customer service representative bilaterally. Lungs clear x 5 lobes. IV Site on Arrival: 20 gauge in the left anticubital. IV Fluids: 0.9% NaCl at KVO. 0 mL infused prior to labor crew supervisor. Oxygen started at 2liters/min via nasal canula. bilateral groins was prepped with chloroprep then draped in the usual sterile fashion. Baseline sample Acquired. HR: 84 BPM. Physician notified. Equipment: 6F - Femoral. Cardiac Cath Pack. ACIST Manifold Kit Model BT 2000. Heparinized Saline (2 units/mL), 1000 mL bag. Kit, Micropuncture. Physician arrived. Physician scrubbed in. Time out performed with cath team. Lidocaine 1% infiltrated to the right groin. Arterial access obtained with micropuncture set. A 6FrFr UF catheter in over wire. seated in distal aorta. Abdominal aortogram performed in AP @ 10 mL/sec for a total of 30 mL. glidewire inserted down SFA. 6FR short sheath exchanged for a 6fr long sheath. hand injection performed. left leg runoff 10ml/sec for a total of 30ml. Inflation number : 1 A [employer] [place] 35 OTW [id number] was prepped and advanced across the Distal Common Femoral, Left , then inflated to 12 THANH for 1:05 seconds. Balloon out. Post intervention angiography performed to check result. seeker inserted. Side port of sheath attached to Normal Saline flush at KVO to maintain patency. hand injection through seeker. seeker out. glidewire inserted. hand injection performed. Side port of sheath attached to Normal Saline flush at KVO to maintain patency. Inflation Number : 2 A [employer] OMNILINK STENT [id number] -Lot Number# [id number] was prepped and advanced across the Distal Common Femoral, Left. The stent was deployed at 12 THANH for 1:09 seconds. Stent balloon out over wire. left leg runoff 10ml/sec for a total of 30ml. 6 fr long sheath exchanged for a 6 fr short sheath. wire out. right leg runoff 10ml/ sec for a total of 30ml. A Suture was successful obtaining hemostatsis at the Right Femoral artery insertion site. Sheath(s) sutured into position with 2-0 silk and sterile 4x4's and Op-site applied over the site. No oozing or signs and symptoms of hematoma noted. Arterial sheath flushed and connected to tranducer and pressure bag with heparinized saline. PERRLA. Strong, equal hand retail customer service representative bilaterally. No VTE prophylaxis required. Fluoro: 20:09. Contrast type used: Visipaque 320 mgI/mL, 500 mL bottle. [id number]. Complications: none. Medication's Wasted: Nitro = 49.6 mg. Medication's Wasted: Lidocaine 1% = 2 mL. Medication's Wasted: Heparin = 4000 units. Total IV fluids: 150 mL. Post-op diagnosis: severe PAD. Estimated blood loss: 5mL-10mL. Procedure completed. Patient transferred by bed to 1st floor. Vital chart was stopped. Procedure Medications Start: 2:39 PM Stop: 2:39 PM Medication: Fentanyl Amount: 50 mcg Route: I.V. Start: 2:52 PM Stop: 2:52 PM Medication: Versed Amount: 1 mg Route: I.V. Start: 2:58 PM Stop: 2:58 PM Medication: Versed Amount: 1 mg Route: I.V. Start: 3:17 PM Stop: 3:17 PM Medication: Heparin Amount: 5000 units Route: I.V. Start: 3:23 PM Stop: 3:23 PM Medication: Versed Amount: 1 mg Route: I.V. Start: 3:33 PM Stop: 3:33 PM Medication: Fentanyl Amount: 50 mcg Route: I.V. Start: 3:43 PM Stop: 3:43 PM Medication: Nitrogylcerin Amount: 400 mcg Route: I.A. Start: 3:43 PM Stop: 3:43 PM Medication: Versed Amount: 1 mg Route: I.V. I, the attending physician, have reviewed and verified all procedure medications. Yes, all medications given per verbal order History/Risk Factors Hypertension: Yes Dyslipidemia: Yes Tobacco Use: Current/Recent(w/in 1 year) Report Signatures Finalized by Lara Shah MD on 01/22/2020 03:38 PM
[2020-01-11 13:03] LABS: SARS Covid-2 Antigen Negative (Negative)
[2020-01-11 13:45] LABS: Basophils % 0.5 %; Eosinophils % 0.3 %; Hematocrit 40.1 % (37.0-47.0); Hemoglobin 13.6 g/dL (11.5-15.3); Lymphocytes # 1.1 10^3/uL (0.8-4.8); Lymphocytes % 14.2 %; Mean Corpuscular HGB Conc 33.9 g/dL (30.0-36.0); Mean Corpuscular Hemoglobin 30.5 pg (28.0-34.0); Mean Corpuscular Volume 89.9 fL (81-99); Mean Platelet Volume 9.2 fL (7.4-10.4); Monocytes # 0.6 10^3/uL (0.2-0.9); Monocytes % 7.4 %; Neutrophils # 5.79 10^3/uL (1.8-7.7); Neutrophils % 77.5 %; Nucleated Red Blood Cells % 0 %; Platelet Count 297 10^3/cmm (130-400); Red Blood Count 4.46 10^6/uL (4.1-5.3); Red Cell Distribution Width 14.2 % (12.1-15.1); White Blood Count 7.5 10^3/uL (4.0-10.0)
[2020-01-11 13:53] LABS: Anion Gap 16.1 (5-19); Blood Urea Nitrogen 14 mg/dL (8-23); Calcium 9.9 mg/dL (8.5-10.5); Carbon Dioxide 22 mmol/L (22-29); Chloride 94 mmol/L (98-107); Glomerular Filtration Rate 83.2 mL/min (90-130); Glucose 107 mg/dL (65-115); Osmolality Calculated 267 mOsm/kg (285-295); Potassium 4.1 mmol/L (3.5-5.1); Sodium 128 mmol/L (136-145)
[2020-01-11] MEDS: diphenhydrAMINE 50 mg Capsule PO (13:57)
[2020-01-11] MEDS: metoprolol tartrate 25 mg Tablet PO (17:28)
[2020-01-11] MEDS: cilostazol 100 mg Tablet 50 MG PO (17:29)
[2020-01-11 18:56] LABS: Partial Thromboplastin Time 63.6 SECONDS (23.9-36.7)
--- NOTE | 2020-01-11 19:37 | PC.NURSE ---
Received report from Ellen Negrete RN at bedside. Patient resting in bed s/p peripheral angiogram with right femoral access. Sheath in place to pressure bag. No s/s of bleeding or hematoma formation observed. Assisted patient on to bedpan. Patient able to void. Assessment completed as documented.
--- NOTE | 2020-01-11 21:50 | PC.NURSE ---
Initiated sheath removal from right femoral artery at 2120 per protocol. Hemostasis achieved immediately. Maintained pressure for 20min. Discussed procedure with patient. Patient verbalized complete understanding. Cleaned area. Applied 2x2 and bio-occlusive dressing. No s/s of bleeding or hematoma formation observed. Instructed patient on site care and restrictions. Again, she verbalized complete understanding.
--- NOTE | 2020-01-11 22:10 | PC.NURSE ---
Dressing to right groin remains c,d,i. No s/s of bleeding or hematoma formation developing at this time.
[2020-01-11] MEDS: temazepam 15 mg Capsule PO (23:35)
[2020-01-12] VITALS (15 sets, daily range): BP systolic 124–171; BP diastolic 62–80; PULSE 75–111; RESP 16–25; TEMP 36.7–37.4; O2SAT 93–99
--- NOTE | 2020-01-12 02:59 | PC.NURSE ---
Dressing to right groin remains c,d,i. No s/s of bleeding or hematoma formation observed. Patient resting with eyes closed. No distress noted.
[2020-01-12] MEDS: apixaban 5 mg Tablet 2.5 MG PO (05:52)
[2020-01-12] MEDS: lisinopril 20 mg Tablet 40 MG PO (05:53)
--- NOTE | 2020-01-12 05:57 | PC.NURSE ---
Patient up to ambulate to bathroom with minimal contact assist. Left foot red and warm this morning. Patient c/o tingling and pain to foot. Instructed patient on potential reperfusion pain. Patient verbalized complete understanding. Dressing to right groin remains c,d,i with no s/s of bleeding or hematoma formation observed. Patient denies pain or discomfort to groin site. No distress observed.
--- NOTE | 2020-01-12 09:21 | PC.NURSE ---
DR. GONZALEZ ORDERED TO ONLY GIVE 0600 DOSE OF ELIQUIS THIS MORNING AND TO NON ADMINISTER THE 0900 DOSE. DISCUSSED WITH NURSE, VITALIY.
--- NOTE | 2020-01-12 10:15 | PC.RESP ---
SMOKING CESSATION INFORMATION SENT TO PATIENT.
--- NOTE | 2020-01-12 10:23 | PM.SDS ---
Short Stay Summary Providers Date of Admit/Discharge: 01/12/20 Attending Provider: Lara Shah MD Primary Care Provider: Pati Dyer MD HPI History of Present Illness Augustina Quispe is a 69 year old female past medical history significant for severe peripheral vascular disease continues tobacco abuse uncontrolled hypertension underwent peripheral angiogram for critical limb ischemia. She was found to have subtotally occluded distal left common iliac. She did not have any flow below the left knee. Balloon angioplasty with stent placement was performed in the left common iliac region which restored good flow. Patient has good flow in the left SFA however tibioperoneal trunk posterior tibial anterior tibial artery were chronically occluded. Distal anterior tibial noted to be filled through collaterals. Due to diffuse extensive small caliber vessel disease below the knee at this point it is not amenable to any further intervention and since we have good collaterals and hindu of good dopplerable anterior and posterior tibial pulse we will continue medical management below the knee. I will keep patient on Plavix and apixaban 2.5 mg twice a day for next 3 months followed by cilostazol once I DC Plavix and apixaban. At this point I am not going to add aspirin due to high risk for bleeding. I will continue patient on pantoprazole. Today patient is feeling much better improved denies any resting pain left foot and leg warm moist pinkish-red color with good dopplerable anterior posterior tibial pulse. Right groin looks good without any big bruising or hematoma. Right foot and leg looks fine. Patient has been discussed regarding quitting smoking. She will be discharged today Review of Systems Skin/Breast: Reports: surgical incision All/Imm: Denies: acute wheezing Home Meds/Allergies Home Medications and Allergies Home Medications Medication Instructions Recorded Confirmed Type cholecalciferol (vitamin D3) 25 1,000 unit PO DAILY 04/25/19 01/11/20 History mcg (1,000 unit) capsule lovastatin 20 mg tablet 20 mg PO DAILY 04/25/19 01/11/20 History metoprolol tartrate 25 mg tablet 25 mg PO BID 04/25/19 01/11/20 History multivitamin 1 tab PO DAILY 04/25/19 01/11/20 History [place] 3-6-9 1 cap PO DAILY 08/16/19 01/11/20 History lisinopril 40 mg tablet 40 mg PO QAM tab 11/21/19 01/11/20 History Allergies Allergy/AdvReac Type Severity Reaction Status Date / Time No Known Allergies Allergy Verified 01/11/20 13:41 PFSH Acute PFSH: Medical History (Updated 01/10/20 @ 12:35 by SAMANTHA Oviedo) History of cervical cancer HTN (hypertension) Hyperlipidemia Left carotid bruit Osteoporosis PVD (peripheral vascular disease) Family History Grandmother Myocardial infarction Mother Chronic kidney disease (CKD) Father Cancer Lung CA Social History Smoking and tobacco status: current every day smoker History of recent travel: No Dietary Habits: Current diet type/program: regular Caffeine: Yes Exercise: What type of physical activity do you participate in?: none Safety: Seatbelt use: always Home Safety: Working smoke detector in home: No Fire extinguisher in home: No Carbon monoxide detector in home: No Vitals/I&O/Wt Last Vital Signs Temp 99.3 F 01/12/20 08:02 Pulse 94 01/12/20 08:02 Resp 19 H 01/12/20 08:02 BP 150/64 01/12/20 08:02 Pulse Ox 99 01/12/20 08:02 01/11/20 01/12/20 01/12/20 22:59 06:59 14:59 Intake Total 360 / 360 340 / 700 120 / 120 Balance 360 / 360 340 / 700 120 / 120 Weight last 48 hrs Weight 113 lb Physical Exam Narrative: EXAM NARRATIVE: GENERAL: Patient is alert, awake and oriented x3. NECK: No jugular vein distension. HEENT: No cyanosis. No icterus. No pallor. HEART: Regular S1 and S2. No murmur, rub or gallop. LUNGS: Clear to auscultate bilaterally. ABDOMEN: Soft, nontender and nondistended. Positive bowel sounds. No guarding, rebound or tenderness. CENTRAL NERVOUS SYSTEM: Grossly nonfocal. EXTREMITIES: Lower extremities without edema bilaterally. Pulses dopplerable in the left anterior and posterior tibial region Hospital Course Hospital Course: As above SSS Data Data Completed and Pending: Pending at discharge Category Date Time Status BOOKKEEPER ASSISTANT request for service Routin e Exams 01/11/20 09:48 Taken Discharge Plan Discharge Patient Disposition: Home Condition: Stable Prescriptions: New Eliquis 5 mg Tablet 2.5 mg PO BID Qty: 60 RF: 3 clopidogrel 75 mg tablet 75 mg PO DAILY Qty: 90 RF: 0 pantoprazole 40 mg tablet,delayed release (DR/EC) 40 mg PO DAILY Qty: 90 RF: 0 Continued multivitamin Tablet 1 tab PO DAILY RF: 0 lovastatin 20 mg tablet 20 mg PO DAILY RF: 0 metoprolol tartrate 25 mg tablet 25 mg PO BID RF: 0 cholecalciferol (vitamin D3) 25 mcg (1,000 unit) capsule 1,000 unit PO DAILY RF: 0 lisinopril 40 mg tablet 40 mg PO QAM RF: 0 Discontinued enoxaparin [Lovenox] 60 mg/0.6 mL syringe 60 mg SUBCUT DAILY Qty: 0.6 RF: 0 cilostazol 50 mg tablet 50 mg PO BID Qty: 60 RF: 0 [place] 3-6-9 1,200 mg Capsule 1 cap PO DAILY RF: 0 aspirin [Adult Aspirin Regimen] 81 mg tablet,delayed release (DR/EC) 81 mg PO DAILY Qty: 90 RF: 3 Discharge Orders: Discharge Order (Routine); Ordered 01/12/20 Ordered By: Lara Shah Referrals: Areli Celestin FNP [Nurse Practitioner] - 1 week Discharge Diet: Cardiac Discharge Activity: Increase activity as tolerated Patient Instructions: Peripheral Vascular Stent Placement (DC), Peripheral Vascular Angioplasty (DC) Activity Restrictions/Additional Instructions: Follow-up with Areli Celestin cardiology nurse practitioner in 7 days. Follow-up with Dr. Arita in 3 months. If you notice blood in the urine stool or dark-colored stool please inform Dr. Arita. Attestations Medical Necessity Statement*: Patient can be discharged home today Time Spent in Patient Care*: greater than 30 min Quality Metrics Clinical Quality Measures: During this hospital stay, did patient experience: None Coding Level of Care Code Established Pt Acute Interventional Tech for Erika King Patient Type Established History Detailed Exam Detailed Medical Decision Making Moderate Complexity
--- NOTE | 2020-01-12 11:13 | PC.CHAP ---
Pastoral Care Encounter/Spiritual Assessment Type of Contact [] Declined senior materials analyst visit [] Patient/Family/Request visit [] Outpatient visit [] Follow-up visit [] Physician referral [] Code/Alert [x] Routine visit [] Staff referral [] Actively dying [] Patient sleeping [] Family support [] [] Out of room [] Palliative care [] [x] Receiving care in room [] Pre-surgical visit [] Trauma [] Long length of stay [] ICU visit [] Other: Relational/Emotional Strength [x] Patient feels connected with others/family/visitors/staff [] Distress [] Loneliness/isolation [] Abandonment Spirituality of Patient [x] Person of Kristin [] Attends Latter-Day of their Kristin [x] Believes in Prayer [] Reads Bible or Pentecostalism materials [] There are Spiritual issues to be addressed Audiovisual Equipment Operator Interventions [x] Prayer [x] Active listening [x] Non-anxious presence [x] Spiritual/emotional support [] Crisis/trauma care [x] Spiritual counseling [] Bereavement support [] Provided bereavement packet [] Provided Bible/devotional materials [] Provided toy/stuffed animal, coloring book to patient or family member [] Provided Communion [] Anointing/[place] [] Salvation [x] Completed spiritual assessment [] Other: Impact on Illness or Injury [] Angry [] Fearful [] Anxious [] Often cries [] Exhaustion [] Unable to work [] Unable to attend mandaeism [] Unable to walk/stand [] Unable to read [] Unable to drive [] Unable to eat/drink [] Unable to sleep [] Unable to be with family [] Patient intubated [] Other: Summary Had tests Cardo V good results has a good attitude, going home today Time spent with patient 10 mins
[2020-01-12] MEDS: aspirin 81 mg EC Tablet PO (11:22)
[2020-01-12] MEDS: cilostazol 100 mg Tablet 50 MG PO (11:25)
[2020-01-12] MEDS: metoprolol tartrate 25 mg Tablet PO (11:26)
--- NOTE | 2020-01-12 12:01 | PC.NURSE ---
Dr Shah approves patient driving self
== END 2020-01-12 11:00 | disposition home or self-care (01) ==
LOC: CCL 01-12 00:54 → CSU 01-12 00:54
PROVIDERS: Admitting Provider Internal Medicine Cardiovascular Disease; PCP Family Medicine; Visit Provider Internal Medicine Cardiovascular Disease
DX: I70.222 Atherosclerosis of native arteries of extremities with rest pain, left leg (principal); Z79.82 Long term (current) use of aspirin; Z79.02 Long term (current) use of antithrombotics/antiplatelets; E78.5 Hyperlipidemia, unspecified; I10 Essential (primary) hypertension; F17.210 Nicotine dependence, cigarettes, uncomplicated
CPT/HCPCS: 12345; 36415; 37226; 75625; 75716; 80048; 85025; 85730; 87426; C1725; C1769; C1876; C1887; C1894; G0378; J1644; J2250; J3010; J3490; J7030; Q0163; Q9967

== ENCOUNTER → 2021-05-27 13:54 | Outpatient (BNVA) | payer MEDICARE, OTHER, SELFPAY | PROVIDERS: PCP Family Medicine; Visit Provider Nurse Practitioner Family | DX: Z09 Encounter for follow-up examination after completed treatment for conditions other than malignant neoplasm (principal); I73.9 Peripheral vascular disease, unspecified; R09.89 Other specified symptoms and signs involving the circulatory and respiratory systems | CPT/HCPCS: 99214 ==

== ENCOUNTER → 2021-11-27 11:09 | Outpatient (BNVA) | payer MEDICARE, OTHER, SELFPAY | PROVIDERS: PCP Family Medicine; Visit Provider Internal Medicine Cardiovascular Disease | DX: I10 Essential (primary) hypertension (principal); I73.9 Peripheral vascular disease, unspecified; Z87.891 Personal history of nicotine dependence | CPT/HCPCS: 99214 ==

== ENCOUNTER 2022-02-11 09:50 | Outpatient (CLI) | payer MEDICARE, OTHER, SELFPAY ==
--- NOTE | 2022-02-11 10:00 | USCV_ITS ---
Augustina Quispe Age: 72 Gender: F : 1950 Exam Date: 02/11/2022 10:15 Ordering Phys: Vicky Evans MD ([email or web address]) Technologist: Exam Location: [facility] [place] Indication: hx of cad BP: 150 / 90 HR: 87 Rhythm: Sinus Technical Quality: Adequate MEASUREMENTS (Male / Female) Normal Values 2D ECHO LV Diastolic Diameter PLAX 3.2 cm 4.2 - 5.9 / 3.9 - 5.3 cm LV Systolic Diameter PLAX 2.6 cm IVS Diastolic Thickness 1.1 cm 0.6 - 1.0 / 0.6 - 0.9 cm IVS Systolic Thickness 1.5 cm LVPW Diastolic Thickness 1.1 cm 0.6 - 1.0 / 0.6 - 0.9 cm LVPW Systolic Thickness 1.3 cm LVOT Diameter 2.0 cm LV Ejection Fraction 2D Teich 24.1 % LV Ejection Fraction MOD 2C 67.3 % LV Ejection Fraction 2C AL 66.7 % LA Diameter 3.1 cm IVC Diameter 1.3 cm M-MODE Aortic Annulus Diameter 2.9 cm LA Ao Ratio MM 1.0 MV E Point Septal Separation 2.0 cm DOPPLER AV Peak Velocity 105.0 cm/s LVOT Peak Velocity 67.0 cm/s AV Area Cont Eq vti 2.4 cm squared AV Area Cont Eq pk 2.0 cm squared MV E' Velocity 7.0 cm/s TR Peak Velocity 206.3 cm/s TR Peak Gradient 17.0 mmHg TV Peak E Velocity 149.0 cm/s Right Atrial Pressure 3.0 mmHg Pulmonary Artery Systolic Pressu 20.0 mmHg RV Acceleration Time 0.1 s FINDINGS Left Ventricle Normal left ventricular size, systolic function with no regional wall motion abnormalities. Left ventricular ejection fraction is estimated at 60 %. Normal diastolic function. Right Ventricle Normal right ventricular size and systolic function. Right Atrium Normal right atrial size. Left Atrium Mildly increased left atrial size. Mitral Valve Moderate mitral annular calcification. Thickened mitral valve. No mitral valve stenosis. No mitral valve regurgitation. Aortic Valve Aortic valve not well visualized. No aortic valve stenosis. No aortic valve regurgitation. Tricuspid Valve Structurally normal tricuspid valve. No tricuspid valve stenosis. Trace tricuspid valve regurgitation. Pulmonic Valve Pulmonic valve not well visualized. Trace pulmonary valve regurgitation. Pericardium No pericardial effusion. Aorta Normal size aortic root and proximal ascending aorta. IVC Normal IVC dimension with >50% respiratory change of the inferior vena cava. CONCLUSIONS 1. Normal left ventricular size, systolic function with no regional wall motion abnormalities. Left ventricular ejection fraction is estimated at 60 %. Normal diastolic function. 2. No prior similar studies to compare. Vicky Evans MD (Electronically Signed) Final Date: 15 February 2022 19:17 S
== END 2022-02-11 09:51 | disposition home or self-care (01) ==
LOC: RAD 09:51
PROVIDERS: PCP Family Medicine; Visit Provider Internal Medicine Cardiovascular Disease
DX: I10 Essential (primary) hypertension (principal); R06.02 Shortness of breath
CPT/HCPCS: 93306

== ENCOUNTER → 2022-08-27 13:59 | Outpatient (BNVA) | payer MEDICARE, OTHER, SELFPAY | PROVIDERS: PCP Family Medicine; Visit Provider Internal Medicine Cardiovascular Disease | DX: I10 Essential (primary) hypertension (principal); I73.9 Peripheral vascular disease, unspecified; Z87.891 Personal history of nicotine dependence | CPT/HCPCS: 99214 ==

== ENCOUNTER → 2023-11-23 15:41 | Outpatient (BNVA) | payer MEDICARE, OTHER, SELFPAY | PROVIDERS: PCP Family Medicine; Visit Provider Internal Medicine Cardiovascular Disease | DX: I73.9 Peripheral vascular disease, unspecified (principal); I10 Essential (primary) hypertension; E78.5 Hyperlipidemia, unspecified; Z87.891 Personal history of nicotine dependence | CPT/HCPCS: 99214 ==

== ENCOUNTER 2024-01-02 21:11 | Emergency (ER) | payer MEDICARE, OTHER, SELFPAY ==
[2024-01-02] VITALS (12 sets, daily range): BP systolic 192–234; BP diastolic 116–135; PULSE 78–112; RESP 14–41; TEMP 36.3; O2SAT 91–100; BMI 21.2
--- NOTE | 2024-01-02 21:31 | XRR_ITS ---
PROCEDURE INFORMATION: Exam: XR Right Elbow Exam date and time: 01/02/2024 9:46 PM Age: 73 years old Clinical indication: Pain; Elbow; Right; Patient HX: RT arm numbness; HX cervical cancer TECHNIQUE: Imaging protocol: Radiologic exam of the right elbow. Views: 3 or more views. COMPARISON: No relevant prior studies available. FINDINGS: Bones/joints: No evidence of fracture or subluxation. No evidence of joint effusion. Radiocapitellar alignment is maintained. Soft tissues: Grossly unremarkable. Faint calcification of the distal triceps tendon. XR/XR elbow RT min 3V* [id number] IMPRESSION: 1. No evidence of fracture or subluxation. If there is clinical suspicion for soft tissue pathology, including ulnar neuropathy, consider correlation with follow-up MRI.
--- NOTE | 2024-01-02 21:54 | XRR_ITS ---
PROCEDURE INFORMATION: Exam: XR Chest Exam date and time: 01/02/2024 9:55 PM Age: 73 years old Clinical indication: Shortness of breath; Prior surgery; Surgery date: 6+ months; Surgery type: Cardiac stents; Patient HX: SOB; Cough; RT arm numbness; HX cervical cancer TECHNIQUE: Imaging protocol: Radiologic exam of the chest. Views: 1 view. COMPARISON: CT angio abd aorta runof [id number] 05/04/2019 11:19 AM FINDINGS: Lungs: No focal consolidation. There is a 4 cm opacity in the left suprahilar region suspicious for a mass. Background of severe emphysematous changes. Pleural spaces: No evidence of pneumothorax. No evidence of pleural effusion. Heart/Mediastinum: Cardiomediastinal silhouette is within normal limits. Bones/joints: No evidence of acute osseous abnormality. XR/XR chest 1V portable [id number] IMPRESSION: 1. Left lung opacity concerning for lung mass. Dedicated CT of the chest is recommended. 2. Severe emphysematous changes.
--- NOTE | 2024-01-02 21:54 | PC.NURSE ---
Addendum entered by Vinay Good RN 01/02/24 22:01: Pt with expiratory wheezing noted. Vitals remain stable Original Note: Pt stated during triage that Thursday and at night, she had some SOB. Pt saw PCP yesterday and wa stated on azithromycin. Pt stated during triage, her breathing was much better. At this time, pt back to RN stating she is starting to feel SOB again. Vitals taken and stable. Chest xray added.
--- NOTE | 2024-01-02 21:55 | PC.NURSE ---
Pt taken to room 11 via wc. Pt continues to have increased SOB. On arrival to room, pt was assisted to stretcher and placed on cardiac monitoring. SPO2 noted to be 83% on room air and pt pulse is now 112. Pt placed on 02 at 4L NC. Charge nurse MD and Primary RN called to bedside secondary to pt continued increased WOB. Pt no longer able to speak in full sentences and is in the tripod position. RT now at bedside. Primary RN assumed care at this time.
--- NOTE | 2024-01-02 22:10 | ECG_ITS ---
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 Measurements Intervals [place] Rate: 111 P: 61 TN: 133 QRS: 80 QRSD: 98 T: 53 QT: 313 QTc: 427 Interpretive Statements SINUS TACHYCARDIA POSSIBLE RIGHT ATRIAL ENLARGEMENT [0.25mV P-WAVE] LEFT ATRIAL ENLARGEMENT [-0.15mV P-WAVE IN V1/V2] POSSIBLE ANTERIOR MYOCARDIAL INFARCTION , OF INDETERMINATE AGE [30 ms Q WAVE IN V3/V4, OR R < 0.2 mV IN V4] No previous ECG available for comparison Electronically Signed On 01-04-2024 00:12:02 CDT by Alissa Castillo M.D. [email or web address]
[2024-01-02] MEDS: ipratropium-albuterol 3 mL Neb INHALATION (22:14)
--- NOTE | 2024-01-02 22:22 | CTR_ITS ---
PROCEDURE INFORMATION: Exam: CTA Chest With Contrast Exam date and time: 01/02/2024 10:51 PM Age: 73 years old Clinical indication: Shortness of breath and tachypnea; Prior surgery; Surgery date: 6+ months; Surgery type: Coronary stents; Patient HX: SOB with hypoxia and tachycardia. History of copd. TECHNIQUE: Imaging protocol: Computed tomographic angiography of the chest with contrast. Exam focused on the arteries. 3D rendering (Not supervised by radiologist): MIP and/or 3D reconstructed images were created by the technologist. Radiation optimization: All CT scans at this facility use at least one of these dose optimization techniques: automated exposure control; mA and/or kV adjustment per patient size (includes targeted exams where dose is matched to clinical indication); or iterative reconstruction. Contrast material: OMNI 350; Contrast volume: 58 ml; Contrast route: INTRAVENOUS (IV); COMPARISON: CR (CHEST, ) 01/02/2024 9:55 PM RADIATION DOSE METRICS: Total DLP (mGy-cm): 269.51 FINDINGS: Pulmonary arteries: Normal. No pulmonary emboli. Aorta: Aortic atherosclerotic calcifications. Lungs: Emphysematous changes. 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 Scattered patchy ground-glass airspace opacities may reflect a small amount of alveolar edema. Pleural spaces: Small bilateral pleural effusions. Heart: Unremarkable. No cardiomegaly. No pericardial effusion. Coronary arteries: Coronary artery atherosclerotic calcifications. Lymph nodes: Scattered subcentimeter nonspecific mediastinal lymph nodes. Bones/joints: Unremarkable. No acute fracture. Soft tissues: Unremarkable. CT/CT angio chest PE protcl [id number] IMPRESSION: 1. Negative for pulmonary embolus. 2. Emphysematous changes. 3. 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 4. Coronary artery atherosclerotic calcifications. 5. Scattered subcentimeter nonspecific mediastinal lymph nodes. 6. Small bilateral pleural effusions. 7. Aortic atherosclerotic calcifications. 8. Scattered patchy ground-glass airspace opacities may reflect a small amount of alveolar edema.
[2024-01-02 22:33] LABS: Basophils # 0.1 10^3/uL (0.0-0.1); Basophils % 0.5 %; Eosinophils # 0.3 10^3/uL (0.0-0.8); Eosinophils % 1.9 %; Hematocrit 47.7 % (36-47); Lymphocytes # 3.1 10^3/uL (0.8-4.8); Lymphocytes % 23.6 %; Mean Corpuscular HGB Conc 32.5 g/dL (30-55); Mean Corpuscular Hemoglobin 28.4 pg (27-33); Mean Corpuscular Volume 87.5 fl (85-98); Mean Platelet Volume 9.3 fL (7.4-10.4); Monocytes # 1.1 10^3/uL (0.2-0.9); Monocytes % 8.2 %; Neutrophils # 8.67 10^3/uL (1.8-7.7); Neutrophils % 65.4 %; Nucleated Red Blood Cells % 0 %; Platelet Count 399 10^3/cmm (157-399); Red Blood Count 5.45 10^6/uL (3.85-5.65); Red Cell Distribution Width 13.2 % (12.1-15.1); White Blood Count 13.25 10^3/uL (3.29-11.43)
[2024-01-02 22:35] LABS: ABG PCO2 43.7 mmHg (35-45); Arterial Blood Gas Hematocrit 47.1 % (37-47); Base Excess ABG -4.7 mmol/L (-2.0-2.0); Blood Gas Allen Test Pos; Blood Gas Sample Site Radial, left; Blood Gas Sample Type Arterial; Carboxyhemoglobin 0.9 %THgb (0.4-20.1); HCO3 ABG 21.6 mmol/L (22-26); HGB O2 Sat 94.8 % (95-100); Methemoglobin 0.2 % (0.4-1.5); Oxygen Device NC; PO2 ABG 89.5 mmHg (80.0-100.0); Total Hemoglobin 15.4 g/dL (12-16)
[2024-01-02] MEDS: sodium chloride 0.9% 1,000 ML 999 ML IV (22:42)
[2024-01-02] MEDS: LORazepam 2 mg/mL INJ 1 mL 1 MG IVP (22:43)
[2024-01-02] MEDS: methylPREDNISolone sod succ 125 mg/2 mL INJ IV (22:45)
[2024-01-02 22:51] LABS: D Dimer 2.41 ug/mLFEU (0-0.59)
[2024-01-02 23:03] LABS: Alanine Aminotransferase 29 U/L (0-33); Albumin Level 4.4 g/dL (3.5-5.2); Alkaline Phosphatase 126 U/L (35-105); Anion Gap 17.5 (5-19); Aspartate Amino Transferase 45 U/L (0-32); Blood Urea Nitrogen 13 mg/dL (8-23); Calcium 9.4 mg/dL (8.5-10.5); Carbon Dioxide 22 mmol/L (22-29); Chloride 95 mmol/L (98-107); Creatinine Clr Calc Pharmacy 53.3972; Globulin 3.5 g/dL (1.3-4.6); Glucose 157 mg/dL (65-115); NT Pro B Type Natriuretic Pept 7047 pg/mL (0-125); Osmolality Calculated 273 mOsm/kg (285-295); Potassium 4.5 mmol/L (3.5-5.1); Sodium 130 mmol/L (136-145); Total Bilirubin 0.2 mg/dL (0.15-1.2); Total Protein 7.9 g/dL (6.6-8.7)
[2024-01-02] MEDS: iohexol 350 mg/mL 500 mL Btl (per mL) IV (23:07)
[2024-01-02 23:15] LABS: Troponin(5th) Baseline 68 ng/L (0-10)
[2024-01-02 23:16] LABS: Lactic Sepsis W/Reflex 4.8 mmol/L (0.5-2.2)
[2024-01-02] MEDS: nitroglycerin drip 50 MG/250 ML PREMIX IV (23:22)
[2024-01-03] VITALS: BP 204/90; PULSE 95; RESP 26
[2024-01-03] MEDS: FUROsemide 10 mg/mL SDV 10mL 60 MG IVP (00:04)
--- NOTE | 2024-01-03 00:04 | USR_ITS ---
PROCEDURE INFORMATION: Exam: US Duplex Right Upper Extremity Arteries Exam date and time: 01/03/2024 12:18 AM Age: 73 years old Clinical indication: Other: Cold extremity; Additional info: Cold right upper extremity TECHNIQUE: Imaging protocol: Right Real-time ultrasound scan of the arteries of the right upper extremity with 2-D elkins scale, color Doppler flow and spectral waveform analysis. COMPARISON: CT angio chest PE protcl [id number] 01/02/2024 10:51 PM FINDINGS: Right subclavian artery: No occlusion or significant stenosis. Normal waveform. Right axillary artery: Right axillary, brachial, radial and ulnar arteries appear occluded with lack of color blood flow. Right brachial artery: See above. Right radial artery: See above. Right ulnar artery: See above. US/[place] [id number] IMPRESSION: Right axillary, brachial, radial and ulnar arteries appear occluded with lack of color blood flow.
[2024-01-03 00:05] VITALS: BP 174/92; PULSE 94; RESP 29; O2SAT 96
--- NOTE | 2024-01-03 00:12 | ED_ITS ---
HPI - Extremity Problem 2 General: Chief complaint: Extremity Injury, Upper Stated complaint: Right arm numbness Time Seen by Provider: 01/02/24 21:27 History of Present Illness: 73-year-old female with a history of per ipheral vascular disease and hypertension. She presents with right arm numbness from the elbow into the forearm and hand. This is atraumatic. She noticed it last evening. She does not have any other neurological symptoms such as headache or vision changes, speech problems, etc. She related this to possibly running a weed eater earlier in the week, although she did not do that today. This was her only complaint on presentation in triage. However, while she was in the waiting room, she became acutely short of breath. She denied chest discomfort, but was having quite a bit of trouble breathing. Because of this, she was brought back quickly to the ER room. Room air saturations at that point were 83 or 84%. She was placed on oxygen with some improvement. Related Data Home Medications Medication Instructions Recorded Confirmed cholecalciferol (vitamin D3) 25 1,000 unit PO DAILY 04/25/19 11/23/23 mcg (1,000 unit) capsule lovastatin 20 mg tablet 20 mg PO DAILY 04/25/19 11/23/23 multivitamin 1 tab PO DAILY 04/25/19 11/23/23 lisinopril 40 mg tablet 40 mg PO QAM 11/21/19 11/23/23 vitamin B complex (B 1 tab PO DAILY 11/27/21 11/23/23 Complex-Vitamin B12 tablet) metoprolol tartrate 25 mg tablet 50 mg PO BID 09/29/23 11/23/23 Previous Rx's Medication Instructions Recorded clopidogrel 75 mg tablet 75 mg PO DAILY #90 tabs 09/29/23 Allergies Allergy/AdvReac Type Severity Reaction Status Date / Time No Known Allergies Allergy Verified 11/23/23 16:04 [facility] ED 2 PFS: Medical History History of cervical cancer Osteoporosis Left carotid bruit Hyperlipidemia HTN (hypertension) PVD (peripheral vascular disease) Family History Grandmother Myocardial infarction Mother Chronic kidney disease (CKD) Father Cancer Lung CA Social History (Reviewed 11/23/23 @ 16:06 by ANATOLY Crowell Smoking and tobacco/nicotine status: former use of tobacco/nicotine Quit status (tobacco/nicotine): has quit using Second hand smoke exposure: No Alcohol intake: never Substance/Drug Use: never Physical Exam 2 Const: GENERAL APPEARANCE: cooperative, anxious and ill appearing HENMT: COMMON NORMALS: normocephalic, atraumatic and Normal external nose present HEAD & SCALP: normocephalic and atraumatic FACE & SINUS: normal facial exam NOSE: Normal external nose present Eye: COMMON NORMALS: Equal, round and reactive pupils present and EOMs intact bilaterally PUPIL: Yes Equal, round and reactive pupils present Neck/C-Spine: GENERAL: Yes trachea midline Chest: CHEST: Yes Symmetrical chest wall rise Resp: EFFORT & INSPECTION: Yes tachypneic and Yes respiratory distress A USCULTATION: rales and wheezes Cardio: COMMON NORMALS: regular rhythm RATE: bradycardic RHYTHM: regular rhythm Extremity: NARRATIVE EXTREMITY EXAM: Minimal tenderness to the elbow. Sensation is grossly intact to touch distally. No deformity. The extremity was cool but had a normal capillary refill on exam. Course 2 Vital Signs: Vital signs: Vital Signs Temperature 97.3 F L 01/02/24 21:17 Pulse Rate 100 01/03/24 01:53 Respiratory Rate 24 H 01/03/24 01:53 Blood Pressure 198/134 01/03/24 01:53 Pulse Oximetry 100 01/03/24 01:53 Oxygen Delivery Me thod BiPAP 01/03/24 00:05 Oxygen Flow Rate 5 01/02/24 22:19 Fraction of Inspir ed Oxygen 50 01/03/24 00:05 MDM - Extremity (Nontraumatic) Medical Decision Making Patient was in no distress whatsoever with saturations of 100% on room air in the waiting room, but then began developing shortness of breath. She required significant oxygen by the time she was placed in an ER room, which was very shortly after she became short of breath. She was requiring so much oxygen, with tachypnea and respiratory distress, that she was placed on BiPAP. This significantly improved her oxygenation. However she is requiring quite a bit of oxygen. She has been given Solu-Medrol, DuoNeb treatment, Lasix, etc. Her blood pressure was quite high, upwards of 230s systolic. It remained high despite improving her respiratory status, so nitroglycerin was started as a drip for hypertensive emergency. Chest x-ray shows a left lung opacity concerning for a mass, she has emphysematous changes, and vascular congestion. D-dimer was significantly elevated. CTA of the chest shows no pulmonary embolus. There is a 4.8 cm lung mass. There are small bilateral pleural effusions. There are scattered patchy groundglass airspace opacities that appears to be edema. While in the ER, the patient's right arm began to seem quite cold. Radial pulses were not palpable despite her high blood pressure. Because of this, duplex arterial study was ordered to the right upper extremity. Results are pending. Arterial duplex shows no flow past the subclavian artery on the right. Spoke with our store planner here. We do not have the equipment available to do upper extremity stents at this facility. We have no vascular surgery at this facility the either. He recommends heparinizing the patient, and transferring to vascular surgery. I spoke with vascular surgery at [facility], he recommends transfer to the emergency department for immediate evaluation on arrival. She was transferred by air ambulance due to critical nature of peripheral vascular occlusion after heparinization here. In terms of her hypertensive emergency, blood pressure is much improved on nitroglycerin drip, blood pressure was 170 systolic prior to her transfer. She would BiPAP for transport, and was doing quite well on simple oxygen mask. Lab Data 01/02/24 22:10 01/02/24 22:10 Radiology Impressions Elbow X-Ray 01/02/24 21:31 IMPRESSION: 1. No evidence of fracture or subluxation. If there is clinical suspicion for soft tissue pathology, including ulnar neuropathy, consider correlation with follow-up MRI. Chest X-Ray 01/02/24 21:54 IMPRESSION: 1. Left lung opacity concerning for lung mass. Dedicated CT of the chest is recommended. 2. Severe emphysematous changes. ADDENDUM: 01/02/24 4692 The findings were verbally communicated by telephone with Dr. VENTURA at 10:59 PM CDT on 01/02/2024. Chest CTA 01/02/24 22:22 IMPRESSION: 1. Negative for pulmonary embolus. 2. Emphysematous changes. 3. 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 4. Coronary artery atherosclerotic calcifications. 5. Scattered subcentimeter nonspecific mediastinal lymph nodes. 6. Small bilateral pleural effusions. 7. Aortic atherosclerotic calcifications. 8. Scattered patchy ground-glass airspace opacities may reflect a small amount of alveolar edema. Duplex Scan Upper Extremity Artery 01/03/24 00:04 IMPRESSION: Right axillary, brachial, radial and ulnar arteries appear occluded with lack of color blood flow. ADDENDUM: 01/03/24 0119 THIS REPORT CONTAINS FINDINGS THAT MAY BE CRITICAL TO PATIENT CARE. The findings were verbally communicated via telephone conference with SIENA VENTURA at 1:18 AM CDT on 01/03/2024. The findings were acknowledged and understood. Laboratory Results WBC 13.25 10^3/uL (3.29-11.43) H 01/02/24 22:10 RBC 5.45 10^6/uL (3.85-5.65) 01/02/24 22:10 Hgb 15.50 g/dL (11.27-16.99) 01/02/24 22:10 Hct 47.7 % (36-47) H 01/02/24 22:10 MCV 87.5 fl (85-98) 01/02/24 22:10 MCH 28.4 pg (27-33) 01/02/24 22:10 MCHC 32.5 g/dL (30-55) 01/02/24 22:10 RDW 13.2 % (12.1-15.1) 01/02/24 22:10 Plt Count 399 10^3/cmm (157-399) 01/02/24 22:10 MPV 9.3 fL (7.4-10.4) 01/02/24 22:10 Neut % (Auto) 65.4 % 01/02/24 22:10 Lymph % (Auto) 23.6 % 01/02/24 22:10 [place] % (Auto) 8.2 % 01/02/24 22:10 Eos % (Auto) 1.9 % 01/02/24 22:10 Baso % (Auto) 0.5 % 01/02/24 22:10 Neut # (Auto) 8.67 10^3/uL (1.8-7.7) H 01/02/24 22:10 Lymph # (Auto) 3.1 10^3/uL (0.8-4.8) 01/02/24 22:10 [place] # (Auto) 1.1 10^3/uL (0.2-0.9) H 01/02/24 22:10 Eos # (Auto) 0.3 10^3/uL (0.0-0.8) 01/02/24 22:10 Baso # (Auto) 0.1 10^3/uL (0.0-0.1) 01/02/24 22:10 Nucleated RBC % (auto) 0 % 01/02/24 22:10 Nucleated RBCs # 0.0 /100WBC 01/02/24 22:10 D-Dimer 2.41 ug/mLFEU (0-0.59) H 01/02/24 22:10 Specimen Type Arterial 01/02/24 22:32 Sample Site Radial, left 01/02/24 22:32 ABG pH 7.30 (7.35-7.45) L 01/02/24 22:32 ABG pCO2 43.7 mmHg (35-45) 01/02/24 22:32 ABG pO2 89.5 mmHg (80.0-100.0) 01/02/24 22:32 ABG HCO3 21.6 mmol/L (22-26) L 01/02/24 22:32 ABG Base Excess -4.7 mmol/L (-2.0-2.0) L 01/02/24 22:32 Rafal Test Pos 01/02/24 22:32 Hematocrit 47.1 % (37-47) H 01/02/24 22:32 Hgb O2 Saturation 94.8 % (95-100) L 01/02/24 22:32 Carboxyhemoglobin 0.9 %THgb (0.4-20.1) 01/02/24 22:32 Methemoglobin 0.2 % (0.4-1.5) L 01/02/24 22:32 Total Hemoglobin 15.4 g/dL (12-16) 01/02/24 22:32 O2 Delivery Device Nc 01/02/24 22:32 O2 Liters/Min 5.0 % 01/02/24 22:32 Makeup Artistry Instructor ID [email or web address] 01/02/24 22:32 Sodium 130 mmol/L (136-145) L 01/02/24 22:10 Potassium 4.5 mmol/L (3.5-5.1) 01/02/24 22:10 Chloride 95 mmol/L (98-107) L 01/02/24 22:10 Carbon Dioxide 22 mmol/L (22-29) 01/02/24 22:10 Anion Gap 17.5 (5-19) 01/02/24 22:10 BUN 13 mg/dL (8-23) 01/02/24 22:10 Creatinine 0.8 mg/dL (0.5-0.9) 01/02/24 22:10 GFR Calculation Not Reportable 01/02/24 22:10 Glucose 157 mg/dL (65-115) H 01/02/24 22:10 Calculated Osmolality 273 mOsm/kg (285-295) L 01/02/24 22:10 Lactic Acid 4.8 mmol/L (0.5-2.2) H* 01/02/24 22:26 Calcium 9.4 mg/dL (8.5-10.5) 01/02/24 22:10 Magnesium 2.0 mg/dL (1.7-2.3) 01/02/24 22:10 Total Bilirubin 0.2 mg/dL (0.15-1.2) 01/02/24 22:10 AST 45 U/L (0-32) H 01/02/24 22:10 ALT 29 U/L (0-33) 01/02/24 22:10 Alkaline Phosphatase 126 U/L (35-105) H 01/02/24 22:10 Troponin T Baseline 68 ng/L (0-10) H 01/02/24 22:10 Troponin T 120 Minute 74.16 ng/L (0-10) H 01/03/24 00:09 Delta Troponin T 6.16 ABS# (0-10) 01/03/24 00:09 NT-Pro-B Natriuret Pep 7047 pg/mL (0-125) H 01/02/24 22:10 Total Protein 7.9 g/dL (6.6-8.7) 01/02/24 22:10 Albumin 4.4 g/dL (3.5-5.2) 01/02/24 22:10 Globulin 3.5 g/dL (1.3-4.6) 01/02/24 22:10 Adenovirus (PCR) Not detected (NOT DETECT) 01/02/24 22:22 C. pneumoniae DNA (PCR) Not detected (NOT DETECT) 01/02/24 22:22 Coronavirus 229E (PCR) Not detected (NOT DETECT) 01/02/24 22:22 Human Metapneumovir PCR Not detected (NOT DETECT) 01/02/24 22:22 Influenza A (H1) PCR Not detected (NOT DETECT) 01/02/24 22:22 Influ A (H1/09) PCR Not detected (NOT DETECT) 01/02/24 22:22 Influenza A (H3) PCR Not detected (NOT DETECT) 01/02/24 22:22 Influenza Type A (PCR) Not detected (NOT DETECT) 01/02/24 22:22 Influenza Type B (PCR) Not detected (NOT DETECT) 01/02/24 22:22 M. pneumoniae (PCR) Not detected (NOT DETECT) 01/02/24 22:22 Parainfluenza 1 (PCR) Not detected (NOT DETECT) 01/02/24 22:22 Parainfluenza 2 (PCR) Not detected (NOT DETECT) 01/02/24 22:22 Parainfluenza 3 (PCR) Not detected (NOT DETECT) 01/02/24 22:22 Parainfluenza 4 (PCR) Not detected (NOT DETECT) 01/02/24 22:22 RSV Type A (PCR) Not detected (NOT DETECT) 01/02/24 22:22 RSV Type B (PCR) Not detected (NOT DETECT) 01/02/24 22:22 Entero/Rhino (PCR) Not detected (NOT DETECT) 01/02/24 22:22 SARS-CoV-2 (PCR) Not detected (NOT DETECT) 01/02/24 22:22 XR interpretation done by ED provider, pending radiology final review Critical Care Time 2 Critical Care Time: Critical Care Time: Yes Total Critical Care Time: 60 Attestation: This case had a high probability of a clinically significant, sudden, or life threatening deterioration of this patient's condition which required my full and direct attention, intervention and personal management. Time is independent of any procedures performed Discharge Plan Discharge Patient Disposition: Xfer Short-Term Hosp Clinical Impression: Acute occlusion of artery of upper extremity, Hypertensive emergency, Pulmonary edema Condition: Critical Referrals: Pati Dyer MD [Primary Care Provider] - Coding Level of Care Code ED Flat Surfacer for Erika King
[2024-01-03 00:15] VITALS: BP 184/91; PULSE 91; RESP 32; O2SAT 97
[2024-01-03 00:17] LABS: Reflex Lactate Order REFLEX LACTIC ORDERD
[2024-01-03 00:30] VITALS: BP 186/96; PULSE 90; RESP 36; O2SAT 95
[2024-01-03 00:30] LABS: Adenovirus Not Detected (NOT DETECT); Chlamydia Pneumoniae Not Detected (NOT DETECT); Coronavirus 229E,HKU1,NL63,OC4 Not Detected (NOT DETECT); Human Metapneumovirus Not Detected (NOT DETECT); Human Rhinovirus/Enterovirus Not Detected (NOT DETECT); Influenza A Not Detected (NOT DETECT); Influenza A H1 Not Detected (NOT DETECT); Influenza A H1-2009 Not Detected (NOT DETECT); Influenza A H3 Not Detected (NOT DETECT); Influenza B Not Detected (NOT DETECT); Mycoplasma Pneumoniae Not Detected (NOT DETECT); Parainfluenza Virus Type 1 Not Detected (NOT DETECT); Parainfluenza Virus Type 2 Not Detected (NOT DETECT); Parainfluenza Virus Type 3 Not Detected (NOT DETECT); Parainfluenza Virus Type 4 Not Detected (NOT DETECT); Respiratory Syncytial Virus A Not Detected (NOT DETECT); Respiratory Syncytial Virus B Not Detected (NOT DETECT); SARS-COV-2 Not Detected (NOT DETECT)
[2024-01-03 00:34] LABS: Troponin 5 2HR 74.16 ng/L (0-10); Troponin 5 2HR Delta 6.16 ABS# (0-10)
[2024-01-03 00:53] VITALS: PULSE 98; O2SAT 100
[2024-01-03] MEDS: heparin 5,000 unit/mL INJ 1 mL IVP (01:20)
[2024-01-03] MEDS: heparin drip 25,000 UNIT/500 ML PREMIX 15.24 UNIT IV (01:25)
--- NOTE | 2024-01-03 01:52 | PC.NURSE ---
Pt's medications continues upon transfer with [facility]
[2024-01-03 01:53] VITALS: BP 198/134; PULSE 100; RESP 24; O2SAT 100
== END 2024-01-03 01:55 | disposition short-term general hospital (02) ==
PROVIDERS: Emergency Provider Emergency Medicine; PCP Family Medicine
DX: I77.89 Other specified disorders of arteries and arterioles (principal); I16.0 Hypertensive urgency; J81.1 Chronic pulmonary edema
CPT/HCPCS: 36415; 36600; 71045; 71275; 73080; 80053; 82805; 83605; 83735; 83880; 84484; 85025; 85378; 87040; 87486; 87581; 87633; 93005; 93931; 94640; 96365; 96375; 99291; J1644; J1940; J2060; J2919; J3490; J7030

== ENCOUNTER → 2024-01-27 11:01 | Outpatient (BNVA) | payer MEDICARE, OTHER, SELFPAY | PROVIDERS: PCP Family Medicine; Visit Provider Nurse Practitioner Family | DX: I49.8 Other specified cardiac arrhythmias (principal); I99.8 Other disorder of circulatory system; Z95.9 Presence of cardiac and vascular implant and graft, unspecified | CPT/HCPCS: 36415; 80048; 83735; 93005; 99214 ==

== ENCOUNTER → 2024-02-03 10:27 | Outpatient (BNVA) | payer MEDICARE, OTHER, SELFPAY | PROVIDERS: PCP Family Medicine; Visit Provider Nurse Practitioner Family | DX: I49.8 Other specified cardiac arrhythmias (principal); Z87.891 Personal history of nicotine dependence; R94.31 Abnormal electrocardiogram [ECG] [EKG] | CPT/HCPCS: 93005; 99214 ==

== ENCOUNTER 2024-02-10 08:43 | Outpatient (CLI) | payer MEDICARE, OTHER, SELFPAY ==
[2024-02-10 08:49] VITALS: BMI 20.5
--- NOTE | 2024-02-10 08:53 | ECG_ITS ---
[facility] Test Date: 2024-02-10 Pat Name: Augustina Quispe Department: Room: Gender: Female Memorial Designer: : 1950 Requested By: Areli Celestin Order Number: [id number] Perez MD: Umang Wu M.D. Interpretive Statements EXERCISE MIBI EXERCISE DATA: The patient was exercised by Tomi protocol. Baseline heart rate was 124 beats per minute. Baseline blood pressure was 199/67 millimeters of mercury. Maximal predicted heart rate was 147 beats per minute. Maximum heart rate achieved was 152, which was 103% of the maximum predicted heart rate. Maximum blood pressure was 203/69 millimeters of mercury. Total exercise time was 4 minutes 13 seconds. Maximum METs achieved was 4.6. The reason for ending the test was completion of protocol. The patient complained of shortness of breath during the stress test, which then resolved at the end of the test. ELECTROCARDIOGRAM: BASELINE: Showed sinus rhythm, normal axis, no significant ST-T changes at the baseline noted. [] EXERCISE: At the peak exercise level, [] No significant ST-T changes suggestive of ischemia noted. [] RECOVERY: During the recovery period, heart rate dropped appropriately. No significant ST-T changes in the recovery suggestive of ischemia noted. [] CONCLUSION: 1. Exercise capacity is poor 2. Heart rate response was appropriate 3. Blood pressure response was hypertensive 4. Symptoms not suggestive of ischemia. 5. Electrocardiogram portion of the stress test was not suggestive of ischemia. 6. Nuclear scan will be documented separately. Electronically Signed On 02-10-2024 19:34:50 HUMAN RESOURCE ADVISER by Umang Wu M.D. [email or web address]
--- NOTE | 2024-02-10 08:54 | NMCV_ITS ---
NM lisbet perf SPECT r/s* [id number] Augustina Quispe Age: 74 Gender: F : 1950 Exam Date: 02/10/2024 10:21 Ordering Phys: Areli Celestin Technologist: LEIDY Torres Exam Location: [facility] Indications: cp STRESS TEST Please see separate stress test report in [facility] for full findings IMAGE PROTOCOL Rest/Stress 1 Exercise Day Radiopharmaceutical Dose (mCi) Administration Site Administered by Rest: Tc-99m 10.7 IV Tracy Alas, VIDEO TECHNICIAN Sestamibi Stress:Tc-99m 33 IV Tracy Alas, VIDEO TECHNICIAN Sestamibi Rest: 10-Feb-2024 60 Discovery 630 Stress: 10-Feb-2024 15 Discovery 630 Radiopharmaceutical was injected at 100% maximum heart rate. Supine position only as patient was unable to lay prone. SPECT RESULTS Technical Quality: Good Raw Data Analysis: Normal Image Corrections: No attenuation or motion correction applied Summed Stress Score: 15 Summed Rest Score: 12 Summed Difference Score: 3 PERFUSION FINDINGS There is large sized, mostly fixed perfusion defect seen in the inferior and inferolateral salguero. This is consistent with large of area of prior infarct with minimal joseph-infarct ischemia seen in the inferior and inferolateral salguero. Small sized area of mostly fixed apical wall defect. This is consistent with small area of prior infarct with minimal joseph-infarct ischemia in the apical wall. FUNCTIONAL RESULTS (calculated via Gated SPECT) Stress Image LV EF (%): 68 Stress EDV (mL):62 TID: 1.2 Stress ESV (mL):20 FUNCTIONAL FINDINGS: There is normal left ventricular systolic function. IMPRESSIONS 1. Large sized area of prior infarct with minimal joseph-infarct ischemia seen in the inferior and inferolateral salguero. 2. Small area of prior infarct with minimal joseph-infarct ischemia seen in the apical wall. 3. LV systolic function is normal Umang Wu MD (Electronically Signed) Final Date: 11 February 2024 10:27 S
[2024-02-10 11:53] VITALS: BP 171/65; PULSE 119
== END 2024-02-10 08:44 | disposition home or self-care (01) ==
LOC: CDL 08:44
PROVIDERS: PCP Family Medicine; Visit Provider Nurse Practitioner Family
DX: I10 Essential (primary) hypertension (principal); I49.8 Other specified cardiac arrhythmias; R94.39 Abnormal result of other cardiovascular function study
CPT/HCPCS: 36415; 78452; 93017; A9500

== ENCOUNTER 2024-05-06 09:00 | Oncology outpatient (recurring) (ONCR) | payer MEDICARE, OTHER, SELFPAY ==
--- NOTE | 2024-05-06 09:00 | PETR_ITS ---
PROCEDURE INFORMATION: Exam: PET/CT Skull Base to Mid-thigh Exam date and time: 05/06/2024 9:43 AM Age: 74 years old Clinical indication: Condition or disease; Primary cancer: Lung sean; Initial oncological staging assessment; Prior surgery; Surgery date: 6+ months; Surgery type: Cardiac stents x3; Additional info: Left upper lobe lung cancer LABS AND CLINICAL REPORTS: Glucose: 118 mg/dl Treatment strategy for malignancy (PET staging): Initial Staging (PI) TECHNIQUE: Imaging protocol: Following at least four-hour fasting and following the injection of radiopharmaceutical, low dose CT images were obtained. Then, PET images were obtained. Attenuation corrected images were constructed using the CT scan. Fused images of PET and CT were reviewed. The standardized uptake values (SUV) reported below are maximum values within a region of interest, expressed in gm/ml. Exam includes orbital meatal line to mid-thigh. SUV normalization method: BodyWeight Radiopharmaceutical: 11.42 mCi F-18 FDG (Fluorodeoxyglucose), IV. Time of imaging post radiopharmaceutical administration: 46 minutes Injection site: left ac COMPARISON: CT angio chest PE protcl [id number] 01/02/2024 10:51 PM FINDINGS: Brain: Visualized brain has normal physiologic uptake. Pharynx: No abnormal uptake. Larynx: No abnormal uptake. Lungs, pleura and trachea: Lobulated left upper lobe mass measuring 5.7 x 5.8 cm. The mass demonstrates moderate to high FDG uptake with a max SUV of 3.2. There is focal area of ground-glass opacity in the anterior aspect of the right upper lobe with mild FDG uptake with a max SUV of 1.4. Heart: Normal physiologic uptake. Mediastinal space: No abnormal uptake. Liver: No abnormal uptake. Gallbladder and biliary ducts: No abnormal uptake. Pancreas: No abnormal uptake. Spleen: No abnormal uptake. Adrenal glands: No abnormal uptake. Kidneys and ureters: Small bowel loops of the distal ileum appears mildly thickened suggestive of enteritis. Stomach and bowel: No abnormal uptake. Intraperitoneal and retroperitoneal spaces: Small volume free fluid in the pelvis. Reproductive: 3 cm left ovarian cyst noted with no abnormal FDG uptake. Vasculature: 3 cm abdominal aortic aneurysm located above the level of the renal arteries. Lymph nodes: There is a mildly enlarged right paratracheal lymph node measuring 9 mm in short axis with moderate FDG uptake with a max SUV of 2.6. No additional abnormal lymph nodes are detected. Skeleton: No abnormal uptake in the visualized axial and appendicular skeleton. Soft tissues: No abnormal uptake in the visualized head, neck, chest, abdomen, pelvis, and extremities. PET/PET skull to thigh INIT [id number] IMPRESSION: 1. FDG avid left upper lobe mass measuring 5.7 x 5.8 cm consistent with primary lung malignancy. 2. Mildly enlarged right paratracheal lymph node with moderate FDG uptake suspicious for metastatic adenopathy. 3. Focal area of ground-glass opacity in the anterior aspect of the right upper lobe with mild FDG uptake which could reflect pneumonia or localized inflammation. Attention on any follow-up examinations. 4. No additional findings of metastatic disease throughout the rest of the body. 5. Additional non oncological findings as described in the body of the report.
== END 2024-05-06 23:59 | disposition home or self-care (01) ==
LOC: ONCMED 05-09 10:30
PROVIDERS: PCP Family Medicine; Visit Provider Internal Medicine Medical Oncology
DX: Z53.9 Procedure and treatment not carried out, unspecified reason (principal); C34.12 Malignant neoplasm of upper lobe, left bronchus or lung; R59.0 Localized enlarged lymph nodes; R91.8 Other nonspecific abnormal finding of lung field
CPT/HCPCS: 78815; 99205; A9552

== ENCOUNTER 2024-06-06 08:15 | Oncology outpatient (recurring) (ONCR) | payer MEDICARE, OTHER, SELFPAY ==
--- NOTE | 2024-05-09 12:36 | MR_ITS ---
WS: [id number] MRI HEAD WITH CONTRAST TECHNIQUE: Sagittal T1, T2 axial, T2 axial FLAIR, axial susceptibility weighted imaging, axial diffusion weighted images, and coronal T2 images were obtained. Pre and post-T1 axial and post T1 coronal images. ADC and FSPGR images. CLINICAL INFORMATION: LUNG CA/STAGING COMPARISON: None. FINDINGS: Brachycephaly. No evidence of enhancing intracranial metastatic disease. Normal dural venous sinuses. 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 Adjacent partially enhancing structure which may represent previously treated or thrombosed basilar aneurysm or vascular malfor mation. This closely abuts the basilar tip. This be further evaluated with CTA if indicated. No evidence of restricted diffusion to suggest acute ischemia. Mild small vessel changes. Chronic lacunar infarcts in the cerebellum bilaterally. Normal vascular flow voids at the skull base. Paranasal sinuses and mastoid air cells are well aerated. MR/MR head wo/w con [id number] IMPRESSION: 1. No evidence of enhancing intracranial metastatic disease. 2. Lobulated partially enhancing lesion in the interpeduncular cistern adjacen t to the basilar artery is indeterminant. This may represent previously treated or thrombosed basilar tip aneurysm. Recommend correlation with clinical histor y and further evaluation with CTA if indicated. 3. 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 4. No other acute findings.
[2024-05-09] MEDS: gadobenate dimeglumine 20 mL vial IV (13:22)
[2024-06-06 08:14] LABS: Basophils # 0.1 10^3/uL (0.0-0.1); Basophils % 0.8 %; Eosinophils # 0.1 10^3/uL (0.0-0.8); Lymphocytes # 1.2 10^3/uL (0.8-4.8); Mean Corpuscular HGB Conc 32.1 g/dL (30-55); Mean Corpuscular Hemoglobin 29.6 pg (27-33); Mean Corpuscular Volume 92.2 fl (85-98); Mean Platelet Volume 9.5 fL (7.4-10.4); Monocytes # 0.8 10^3/uL (0.2-0.9); Monocytes % 12.5 %; Neutrophils # 3.86 10^3/uL (1.8-7.7); Neutrophils % 64.5 %; Nucleated Red Blood Cells % 0 %; Platelet Count 249 10^3/cmm (157-399); Red Blood Count 4.12 10^6/uL (3.85-5.65); Red Cell Distribution Width 13.2 % (12.1-15.1); White Blood Count 5.99 10^3/uL (3.29-11.43)
[2024-06-06 08:46] LABS: Alanine Aminotransferase 17 U/L (0-33); Albumin Level 4.3 g/dL (3.5-5.2); Alkaline Phosphatase 87 U/L (35-105); Anion Gap 15.6 (5-19); Aspartate Amino Transferase 22 U/L (0-32); Blood Urea Nitrogen 22 mg/dL (8-23); Calcium 9.8 mg/dL (8.5-10.5); Carbon Dioxide 24 mmol/L (22-29); Chloride 100 mmol/L (98-107); Globulin 2.7 g/dL (1.3-4.6); Glucose 124 mg/dL (65-115); Osmolality Calculated 285 mOsm/kg (285-295); Potassium 4.6 mmol/L (3.5-5.1); Sodium 135 mmol/L (136-145); Total Bilirubin 0.3 mg/dL (0.15-1.2)
== END 2024-06-06 23:59 | disposition home or self-care (01) ==
PROVIDERS: PCP Family Medicine; Visit Provider Internal Medicine Medical Oncology
DX: Z53.9 Procedure and treatment not carried out, unspecified reason; C34.92 Malignant neoplasm of unspecified part of left bronchus or lung; I72.5 Aneurysm of other precerebral arteries; Z87.891 Personal history of nicotine dependence
CPT/HCPCS: 36415; 70553; 80053; 85025; 99214

== ENCOUNTER 2024-08-02 09:57 | Oncology outpatient (recurring) (ONCR) | payer MEDICARE, OTHER, SELFPAY ==
[2024-08-02 10:19] LABS: Basophils # 0.1 10^3/uL (0.0-0.1); Basophils % 0.9 %; Eosinophils # 0.1 10^3/uL (0.0-0.8); Hematocrit 37.2 % (36-47); Lymphocytes # 1.4 10^3/uL (0.8-4.8); Lymphocytes % 17.7 %; Mean Corpuscular Volume 90.7 fl (85-98); Mean Platelet Volume 9.6 fL (7.4-10.4); Monocytes # 0.8 10^3/uL (0.2-0.9); Monocytes % 10.6 %; Neutrophils # 5.33 10^3/uL (1.8-7.7); Neutrophils % 69.5 %; Nucleated Red Blood Cells % 0 %; Platelet Count 285 10^3/cmm (157-399); Red Cell Distribution Width 13.1 % (12.1-15.1); White Blood Count 7.67 10^3/uL (3.29-11.43)
[2024-08-02 10:39] LABS: Alanine Aminotransferase 14 U/L (0-33); Albumin Level 4.1 g/dL (3.5-5.2); Alkaline Phosphatase 92 U/L (35-105); Anion Gap 17.1 (5-19); Aspartate Amino Transferase 23 U/L (0-32); Blood Urea Nitrogen 19 mg/dL (8-23); Calcium 9.3 mg/dL (8.5-10.5); Carbon Dioxide 22 mmol/L (22-29); Chloride 103 mmol/L (98-107); Creatinine Clr Calc Pharmacy 52.6119; Globulin 2.6 g/dL (1.3-4.6); Glucose 93 mg/dL (65-115); Osmolality Calculated 288 mOsm/kg (285-295); Potassium 4.1 mmol/L (3.5-5.1); Sodium 138 mmol/L (136-145); Total Bilirubin 0.2 mg/dL (0.15-1.2); Total Protein 6.7 g/dL (6.6-8.7)
== END 2024-08-06 23:59 | disposition home or self-care (01) ==
PROVIDERS: PCP Family Medicine; Visit Provider Internal Medicine Medical Oncology
DX: C34.92 Malignant neoplasm of unspecified part of left bronchus or lung (principal); R03.0 Elevated blood-pressure reading, without diagnosis of hypertension; I72.5 Aneurysm of other precerebral arteries; Z87.891 Personal history of nicotine dependence
CPT/HCPCS: 36415; 80053; 85025; 99214

== ENCOUNTER 2024-08-30 14:01 | Oncology outpatient (recurring) (ONCR) | payer MEDICARE, OTHER, SELFPAY ==
[2024-08-10 07:27] VITALS: PULSE 64; RESP 18; O2SAT 97
[2024-08-10] MEDS: albuterol 2.5 mg/3 mL Neb INHALATION (07:27)
--- NOTE | 2024-08-12 11:00 | PETR_ITS ---
PROCEDURE INFORMATION: Exam: PET/CT Skull Base to Mid-thigh Exam date and time: 08/12/2024 11:55 AM Age: 74 years old Clinical indication: Symptoms: Lll lung cancer; Prior surgery; Surgery date: 6+ months; Surgery type: Cardiac stents; Additional info: Adenocarcinoma of left lung, Dr. Agee would like this done on 08/12/24 LABS AND CLINICAL REPORTS: Glucose: 125 mg/dl Treatment strategy for malignancy (PET staging): Restaging (PS) TECHNIQUE: Imaging protocol: Following at least four-hour fasting and following the injection of radiopharmaceutical, low dose CT images were obtained. Then, PET images were obtained. Attenuation corrected images were constructed using the CT scan. Fused images of PET and CT were reviewed. The standardized uptake values (SUV) reported below are maximum values within a region of interest, expressed in gm/ml. Exam includes orbital meatal line to mid-thigh. SUV normalization method: BodyWeight Radiopharmaceutical: 11.56 mCi F-18 FDG (Fluorodeoxyglucose), IV. Time of imaging post radiopharmaceutical administration: 48 minutes Injection site: Right AC COMPARISON: 1. MR head wo/w con [id number] 05/09/2024 12:49 PM 2. PT PET skull to thigh INIT [id number] 05/06/2024 9:43 AM FINDINGS: Brain: Visualized brain has normal physiologic uptake. Approximately 1.1 cm peripherally calcified focus just posterosuperior to the sella corresponding to known aneurysm, see recent comparison brain MRI. Pharynx: No abnormal uptake. Larynx: No abnormal uptake. Lungs, pleura and trachea: Lobulated left upper lobe mass measures 6.8 x 5.7 cm on axial image 85 and shows heterogeneous peripheral FDG uptake with greatest focus of uptake at the anterior inferomedial aspect showing SUV max 9.1 on axial image 90, previously 6.1 x 5.0 cm with SUV max 4.0. Again, areas of photopenia compatible with necrosis. Developed adjacent 0.5 cm non FDG avid nodule on axial image 87. 0.7 cm non FDG avid right upper lobe nodule on axial image 69 previously measured 0.3 cm. Developed 0.7 cm non FDG avid right middle lobe nodule on axial image 103. Developed 0.7 cm non FDG-avid posterior right upper lobe nodule on axial image 84. 0.8 cm non FDG avid medial left lower lobe nodule on axial image 119 previously measured 0.3 cm. Stable 2.1 cm anterior right upper lobe ground-glass opacity on axial image 92 with very low-level FDG uptake showing SUV max 1.4. Heart: Normal physiologic uptake. Coronary arteries: Moderate coronary artery calcification. Mediastinal space: No abnormal uptake. Liver: No abnormal uptake. Gallbladder and biliary ducts: No abnormal uptake. Cholelithiasis. Pancreas: No abnormal uptake. Spleen: No abnormal uptake. Calcified granulomata. Adrenal glands: No abnormal uptake. Kidneys and ureters: Normal physiologic uptake. Stomach and bowel: No abnormal uptake. Reproductive: The uterus appears surgically absent. Stable photopenic simple appearing fluid density 3 cm left adnexal cyst. Vasculature: No abnormal uptake. Heavy systemic atherosclerotic calcification with stable distal descending thoracic aorta dilatation measuring 2.6 cm diameter. Lymph nodes: Stable mildly prominent lower right paratracheal lymph node measuring 0.8 cm in the short axis on axial image 87 with SUV max 2.8. Stable size right upper paratracheal node measures 0.5 cm in the short axis on axial image 75 and shows developed low-level uptake with SUV max 3.1. Skeleton: No abnormal uptake in the visualized axial and appendicular skeleton. Degenerative changes along the spine. Soft tissues: No abnormal uptake in the visualized head, neck, chest, abdomen, pelvis, and extremities. METRICS: Mediastinal blood pool: SUV mean 1.9 Liver uptake: SUV mean 2.4 PET/PET skull to thigh SUBS [id number] IMPRESSION: 1. Disease progression with increased size and metabolic activity of left upper lobe mass now measuring up to 6.8 cm. Multiple increased/developed non FDG avid subcentimeter bilateral pulmonary nodules suspicious for progressive metastatic disease. 2. Mildly progressed mildly metabolic right paratracheal lymphadenopathy concerning for metastatic disease. 3. Stable anterior right upper lobe ground-glass opacity with very low-level FDG uptake may represent indolent neoplasm. 4. Additional chronic and incidental findings as above, to include known intracranial aneurysm just posterosuperior to the sella.
== END 2024-09-05 23:59 | disposition home or self-care (01) ==
PROVIDERS: PCP Family Medicine; Visit Provider Internal Medicine
DX: C34.92 Malignant neoplasm of unspecified part of left bronchus or lung (principal); R91.8 Other nonspecific abnormal finding of lung field; I71.9 Aortic aneurysm of unspecified site, without rupture; Z79.899 Other long term (current) drug therapy; Z87.891 Personal history of nicotine dependence
CPT/HCPCS: 78815; 94060; 94726; 94729; 99213; A9552; J7613

== ENCOUNTER → 2024-09-02 08:41 | Outpatient (BNVA) | payer MEDICARE, OTHER, SELFPAY | PROVIDERS: PCP Family Medicine; Visit Provider Student in an Organized Health Care Education/Training Program | DX: Z95.828 Presence of other vascular implants and grafts (principal) | CPT/HCPCS: 99204 ==

== ENCOUNTER 2024-09-07 06:43 | Day surgery (SDC) | payer MEDICARE, OTHER, SELFPAY ==
[2024-09-07] VITALS (7 sets, daily range): BP systolic 143–191; BP diastolic 56–129; PULSE 63–67; RESP 16–18; TEMP 36.1–36.4; O2SAT 95–98
--- NOTE | 2024-09-07 06:46 | SC_ITS ---
WS: [id number] C-arm FL for CVA [id number] REASON FOR EXAM: Port placement FINDINGS: Chemotherapy infusion port overlying the right chest with trans right internal jugular vein infusion catheter with the tip in the SVC at the level of the aortic arch. SC/C-arm FL for CVA [id number] IMPRESSION: Right-sided chemotherapy port and infusion catheter in proper position.
--- NOTE | 2024-09-07 07:31 | ANES.PREANE2 ---
Pre-Anesthetic Assessment Height/Weight: Height 5 ft 3 in Weight 113 lb Temp Pulse Resp BP Pulse Ox O2 Del Method 97 F L 65 18 191/76 98 Room Air 09/07/24 06:55 09/07/24 06:55 09/07/24 06:55 09/07/24 06:55 09/07/24 06:55 09/07/24 06:57 Preop Diagnosis: Scheduled chemotherapy requiring port placement Operation Date: 09/07/24 08:20 Proposed Procedures p Portacath Placement [id number] Z95.828(Not Applicable) - Jasson Hill MD Was Beta Violet taken within 24 hours: Yes Was Clonidine taken within 24 hours: N/A Last intake: Intake Last Liquid Date 09/06/24 Last Liquid Time 22:00 Last Solid Date 09/06/24 Last Solid Time 20:00 Social No alcohol and No tobacco Exam alert, oriented x 3 and regular rate & rhythm Airway Submandibular: within normal limits Mallampati: Class II Comments: Comments: Few teeth remaining, denies any loose Anesthetic Plan ASA status: 4 Anesthesia: MAC Other: No prior issues with anesthesia NPO since yesterday evening Patient has non-small cell lung cancer. 4.8 cm left lung mass. 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 Cerebral angiogram scheduled for 09/30/2024. Per oncology note, this made need to be delayed 1 to 2 months for patient to have 2?3 cycles of chemo. Patient states that she gets blurry vision very occasionally No home oxygen, patient states that she is still able to get around just fine without getting SOB History of hypertension on lisinopril and metoprolol. Preop BP 191/76 Plan for MAC anesthesia with local via surgeon Medications/Allergies Home Medications ?Medication ?Instructions ?Recorded ?Confirmed ?Last Taken ?Type cholecalciferol (vitamin D3) 25 1,000 unit PO DAILY 04/25/19 09/07/24 09/06/24 History mcg (1,000 unit) capsule lovastatin 20 mg tablet 20 mg PO DAILY 04/25/19 09/07/24 09/05/24 History multivitamin 1 tab PO DAILY 04/25/19 09/07/24 09/06/24 History lisinopril 40 mg tablet 40 mg PO QAM 11/21/19 09/07/24 09/06/24 History vitamin B complex (B 1 tab PO DAILY 11/27/21 09/07/24 09/06/24 History Complex-Vitamin B12 tablet) amlodipine 5 mg tablet (Norvasc) 5 mg PO DAILY 01/27/24 09/07/24 09/06/24 History hydralazine 50 mg tablet 100 mg PO TID 01/27/24 09/07/24 09/06/24 History warfarin 2.5 mg tablet 2.5 mg PO DAILY 01/27/24 09/07/24 09/01/24 History metoprolol tartrate 50 mg tablet 50 mg PO BID 06/06/24 09/07/24 09/07/24 History dexamethasone 4 mg tablet 4 mg PO BID #24 tabs 08/30/24 09/07/24 Unknown Rx folic acid 1 mg tablet 1 mg PO DAILY #30 tabs 08/30/24 09/07/24 09/06/24 Rx ondansetron HCl 4 mg tablet 4 mg PO Q6H PRN nausea and 08/30/24 09/07/24 Unknown Rx vomiting #30 tabs prochlorperazine maleate 10 mg 10 mg PO Q4H PRN mild nausea #30 08/30/24 09/07/24 Unknown Rx tablet (Compazine) tabs Allergies Allergy/AdvReac Type Severity Reaction Status Date / Time No Known Allergies Allergy Verified 09/06/24 11:06 Current Medications Generic Name Dose Route Start Last Admin Trade Name Freq PRN Reason Stop Dose Admin Sodium Chloride 1,000 mls @ 30 mls/hr 09/07/24 07:00 09/07/24 07:10 Sodium Chloride 0.9% IV 09/08/24 06:59 30 mls/hr .Q24H ILYA Administration PFSH Anesthesia Medical History History of cervical cancer Osteoporosis Left carotid bruit Hyperlipidemia HTN (hypertension) PVD (peripheral vascular disease) Family History Grandmother Myocardial infarction Mother Chronic kidney disease (CKD) Father Cancer Lung CA Social History Smoking and tobacco/nicotine status: former use of tobacco/nicotine Quit status (tobacco/nicotine): has quit using Second hand smoke exposure: No Alcohol intake: never Substance/Drug Use: never Data Anesthesia Cardiac Studies: Echocardiogram 02/11/22 Sestamibi Stress Test (Cardiology) 02/10/24 Cardiac Event Monitor 02/16/24
--- NOTE | 2024-09-07 08:24 | W.PM.OPSUD ---
Surgery/Procedure H&P Update DATE OF PROCEDURE: September 07, 2024 DATE H&P PERFORMED: 09/02/24 H&P UPDATE INFORMATION: I have reviewed H&P completed within last 30 days, I have examined patient prior to procedure, No changes to prior documentation and Risks and benefits of the procedure reviewed PREOP DIAGNOSIS: Scheduled chemotherapy requiring port placement PLANNED PROCEDURE: Operation Date: 09/07/24 08:20 Proposed Procedures p Portacath Placement [id number] Z95.828(Not Applicable) - Jasson Hill MD
[2024-09-07] MEDS: ceFAZolin 2,000 mg SDV 2000 MG IVP (08:42)
[2024-09-07] MEDS: heparin, porcine 1,000 unit/mL INJ 10 mL 6000 UNIT XX (09:11)
[2024-09-07] MEDS: BUPivacaine 0.5% INJ 30 mL INJECTION (09:17)
[2024-09-07] MEDS: lidocaine-epi 1% PF 1:200,000 30 mL SDV INJECTION (09:17)
--- NOTE | 2024-09-07 09:47 | PM.OP ---
Operative Report Date of procedure: September 07, 2024 Pre-op diagnosis: Lung cancer Post-op diagnosis: same Post-op findings: Tip of catheter at atriocaval junction. Confirmed with intraoperative fluoroscopy. Procedure done: Port placement Implants: Port-A-Cath Specimens removed/disposition: N/A Pathology: none sent Surgeon: Jasson Hill MD Fire Support Specialist: N/A Anesthesia: MAC Estimated blood loss (mL): 10 Complications: N/A Findings: Tip of catheter at atriocaval junction. Confirmed with intraoperative fluoroscopy. Condition: stable Disposition: same day Brief History: 74-year-old female who presented with lung cancer. Needs port for chemotherapy. Discussed risk and benefits and patient agreed to proceed with Port-A-Cath placement. Procedure: Patient was brought into the operating room and a timeout was carried out. Procedure was done under MAC. Patient was placed supine with the arms tucked and in Trendelenburg. Patient was prepped and draped in the usual sterile fashion. Using ultrasound guidance the right internal jugular vein was accessed. A guidewire was then placed down to the atriocaval junction using fluoroscopy. The finder needle was removed and the guidewire was secured. I then turned my attention to creating a pocket over the right chest. Make sure to locally infiltrated using plain lidocaine and bupivacaine at the site of the pocket and throughout the tunnel site. I confirmed adequate hemostasis at the pocket. I then proceeded to place the port that was already preassembled and flushed with heparinized saline and the chest pocket. I tunneled the catheter from the chest to the neck at the site where I accessed the internal jugular vein. I measured and adjusted the length of the catheter so it would reach the atrial caval junction. At this point, I used a dilator to dilate the tract into the internal jugular vein using fluoroscopy. I removed the guidewire and proceeded to thread the central venous catheter through the introducer. In the process, I removed the sheath as a completely pushed the catheter into the internal jugular vein. I then confirmed adequate placement of the catheter by performing intraoperative interpretation of fluoroscopy. The tip of the catheter was confirmed to be placed in the atriocaval junction. There were no kinks noted throughout the trajectory of the catheter. I then proceeded to test the port and was satisfied with its functionality. I proceeded to flushed the catheter without any issues. I then hep-locked the port. Skin was closed using deep dermal 3-0 Vicryl, subcuticular 4-0 Monocryl, and Dermabond. Patient was then transferred to PACU without any complications.
--- NOTE | 2024-09-07 10:19 | ANE.PACU2 ---
Inpatient post-anesthesia follow up: Airway intact: Yes Vital signs: Temperature 97.6 F Pulse Rate 64 Respiratory Rate 17 Blood Pressure 165/78 Pulse Oximetry 97 Oxygen Delivery Me thod Room Air Oxygen Flow Rate Fraction of Inspir ed Oxygen Hydration adequate: Yes Nausea and vomiting: No Pain level: 1 Mental status: Baseline
== END 2024-09-07 10:19 | disposition home or self-care (01) ==
PROVIDERS: PCP Family Medicine; Visit Provider Student in an Organized Health Care Education/Training Program
PROC: (CPT 36561; principal; 2024-09-07 08:20)
DX: C34.00 Malignant neoplasm of unspecified main bronchus (principal); E78.5 Hyperlipidemia, unspecified; I10 Essential (primary) hypertension; I73.9 Peripheral vascular disease, unspecified; Z80.1 Family history of malignant neoplasm of trachea, bronchus and lung; Z87.891 Personal history of nicotine dependence; Z85.41 Personal history of malignant neoplasm of cervix uteri
CPT/HCPCS: 36561; 76000; 77001; C1788; J0690; J1644; J2704; J3490; J7030; J9999

== ENCOUNTER 2024-09-15 08:46 | Oncology outpatient (recurring) (ONCR) | payer MEDICARE, OTHER, SELFPAY ==
[2024-09-15 09:06] LABS: Hematocrit 35.8 % (36-47); Hemoglobin 11.80 g/dL (11.27-16.99); Mean Corpuscular HGB Conc 33.0 g/dL (30-55); Mean Corpuscular Hemoglobin 29.3 pg (27-33); Mean Corpuscular Volume 88.8 fl (85-98); Nucleated Red Blood Cells % 0 %; Platelet Count 248 10^3/cmm (157-399); Red Blood Count 4.03 10^6/uL (3.85-5.65); White Blood Count 8.64 10^3/uL (3.29-11.43)
[2024-09-15 09:33] LABS: Alanine Aminotransferase 13 U/L (0-33); Albumin Level 4.1 g/dL (3.5-5.2); Alkaline Phosphatase 80 U/L (35-105); Anion Gap 19.0 (5-19); Aspartate Amino Transferase 19 U/L (0-32); Blood Urea Nitrogen 24 mg/dL (8-23); Calcium 9.7 mg/dL (8.5-10.5); Carbon Dioxide 21 mmol/L (22-29); Chloride 97 mmol/L (98-107); Creatinine Clr Calc Pharmacy 37.6109; Globulin 2.9 g/dL (1.3-4.6); Glucose 150 mg/dL (65-115); Osmolality Calculated 283 mOsm/kg (285-295); Potassium 4.0 mmol/L (3.5-5.1); Sodium 133 mmol/L (136-145); Thyroid Stimulating Hormone 0.52 uIU/mL (0.27-4.20); Total Protein 7.0 g/dL (6.6-8.7)
[2024-09-15] MEDS: aprepitant 130 mg/18 ml SDV IVP (11:42)
[2024-09-15] MEDS: diphenhydrAMINE 50 mg/mL SDV 1mL 25 MG IVP (11:52)
[2024-09-15] MEDS: pembrolizumab 200 MG in sodium chloride 0.9% 250 ML 516 MG IV (12:28)
[2024-09-15] MEDS: SODIUM CHLORIDE 0.9% IV ×2 (13:04→13:28)
[2024-09-15] MEDS: PEMETREXED DISODIUM IV (13:04)
[2024-09-15] MEDS: CARBOPLATIN IV (13:28)
[2024-09-15] MEDS: pegfilgrastim 6 mg/0.6 mL Kit (onpro) SUBCUT (14:50)
[2024-09-15 15:00] VITALS: BP 124/74; PULSE 71; RESP 16; TEMP 35.9; O2SAT 96
== END 2024-09-15 23:59 | disposition home or self-care (01) ==
PROVIDERS: PCP Family Medicine; Visit Provider Internal Medicine
DX: Z51.11 Encounter for antineoplastic chemotherapy (principal); Z51.12 Encounter for antineoplastic immunotherapy; C34.92 Malignant neoplasm of unspecified part of left bronchus or lung; R03.0 Elevated blood-pressure reading, without diagnosis of hypertension; I72.5 Aneurysm of other precerebral arteries; Z87.891 Personal history of nicotine dependence; Z79.52 Long term (current) use of systemic steroids; Z79.899 Other long term (current) drug therapy
CPT/HCPCS: 80053; 82533; 84443; 85025; 96375; 96377; 96413; 96417; 99215; A4222; J0185; J1100; J1200; J2469; J2506; J3490; J7040; J7050; J9045; J9271; J9305; J9999

== ENCOUNTER 2024-10-06 07:30 | Oncology outpatient (recurring) (ONCR) | payer MEDICARE, OTHER, SELFPAY ==
[2024-09-22 10:02] LABS: Hematocrit 31.5 % (36-47); Hemoglobin 10.40 g/dL (11.27-16.99); Mean Corpuscular HGB Conc 33.0 g/dL (30-55); Mean Corpuscular Hemoglobin 28.9 pg (27-33); Mean Corpuscular Volume 87.5 fl (85-98); Nucleated Red Blood Cells % 0 %; Platelet Count 60 10^3/cmm (157-399); Red Blood Count 3.60 10^6/uL (3.85-5.65); White Blood Count 1.63 10^3/uL (3.29-11.43)
[2024-09-22 10:23] LABS: Alanine Aminotransferase 17 U/L (0-33); Albumin Level 3.9 g/dL (3.5-5.2); Alkaline Phosphatase 92 U/L (35-105); Anion Gap 16.4 (5-19); Aspartate Amino Transferase 25 U/L (0-32); Blood Urea Nitrogen 28 mg/dL (8-23); Calcium 8.8 mg/dL (8.5-10.5); Carbon Dioxide 21 mmol/L (22-29); Chloride 100 mmol/L (98-107); Globulin 2.3 g/dL (1.3-4.6); Glucose 92 mg/dL (65-115); Osmolality Calculated 281 mOsm/kg (285-295); Potassium 4.4 mmol/L (3.5-5.1); Sodium 133 mmol/L (136-145); Total Protein 6.2 g/dL (6.6-8.7)
[2024-09-22 10:29] LABS: Slide Review Slide Review Perform
[2024-09-29 10:15] LABS: Hematocrit 30.3 % (36-47); Hemoglobin 9.90 g/dL (11.27-16.99); Mean Corpuscular HGB Conc 32.7 g/dL (30-55); Mean Corpuscular Hemoglobin 29.1 pg (27-33); Mean Corpuscular Volume 89.1 fl (85-98); Platelet Count 109 10^3/cmm (157-399); Red Blood Count 3.40 10^6/uL (3.85-5.65); White Blood Count 19.30 10^3/uL (3.29-11.43)
[2024-09-29 10:34] LABS: Alanine Aminotransferase 20 U/L (0-33); Albumin Level 3.9 g/dL (3.5-5.2); Alkaline Phosphatase 134 U/L (35-105); Anion Gap 16.5 (5-19); Aspartate Amino Transferase 29 U/L (0-32); Blood Urea Nitrogen 15 mg/dL (8-23); Calcium 9.5 mg/dL (8.5-10.5); Carbon Dioxide 23 mmol/L (22-29); Chloride 100 mmol/L (98-107); Creatinine Clr Calc Pharmacy 51.7150; Globulin 2.6 g/dL (1.3-4.6); Glucose 88 mg/dL (65-115); Osmolality Calculated 280 mOsm/kg (285-295); Potassium 4.5 mmol/L (3.5-5.1); Sodium 135 mmol/L (136-145); Total Protein 6.5 g/dL (6.6-8.7)
[2024-09-29 10:56] LABS: Absolute Segmented Neutrophil 11.0 10/cmm (1.6-7.1); Atypical Lymphs 0.0 % (0-5); Band Neutrophils Absolute 1.7 10^3/cmm (0.0-1.2); Slide Review Slide Review Perform; Total Cells Counted 100 (0-100)
[2024-09-29 10:57] LABS: Giant Platelets Trace
[2024-10-06 08:02] LABS: Hematocrit 29.1 % (36-47); Hemoglobin 9.80 g/dL (11.27-16.99); Mean Corpuscular HGB Conc 33.7 g/dL (30-55); Mean Corpuscular Hemoglobin 29.6 pg (27-33); Mean Corpuscular Volume 87.9 fl (85-98); Nucleated Red Blood Cells % 0 %; Platelet Count 470 10^3/cmm (157-399); Red Blood Count 3.31 10^6/uL (3.85-5.65); White Blood Count 10.45 10^3/uL (3.29-11.43)
[2024-10-06 08:32] LABS: Alanine Aminotransferase 18 U/L (0-33); Albumin Level 4.0 g/dL (3.5-5.2); Alkaline Phosphatase 110 U/L (35-105); Anion Gap 19.0 (5-19); Aspartate Amino Transferase 21 U/L (0-32); Blood Urea Nitrogen 25 mg/dL (8-23); Calcium 9.8 mg/dL (8.5-10.5); Carbon Dioxide 22 mmol/L (22-29); Chloride 94 mmol/L (98-107); Creatinine Clr Calc Pharmacy 45.8096; Globulin 2.8 g/dL (1.3-4.6); Glucose 117 mg/dL (65-115); Osmolality Calculated 275 mOsm/kg (285-295); Potassium 5.0 mmol/L (3.5-5.1); Sodium 130 mmol/L (136-145); Thyroid Stimulating Hormone 0.40 uIU/mL (0.27-4.20); Total Protein 6.8 g/dL (6.6-8.7)
[2024-10-06] MEDS: diphenhydrAMINE 50 mg/mL SDV 1mL 25 MG IVP (09:46)
[2024-10-06] MEDS: aprepitant 130 mg/18 ml SDV IVP (10:01)
[2024-10-06] MEDS: pembrolizumab 200 MG in sodium chloride 0.9% 250 ML 516 MG IV (10:13)
[2024-10-06] MEDS: PEMETREXED DISODIUM IV (10:55)
[2024-10-06] MEDS: SODIUM CHLORIDE 0.9% IV (10:55)
[2024-10-06] MEDS: CARBOplatin 280 MG in sodium chloride 0.9% 500 ML 528 MG IV (12:18)
[2024-10-06 13:36] VITALS: BP 144/70; PULSE 79; TEMP 35.9; O2SAT 98
[2024-10-06] MEDS: pegfilgrastim 6 mg/0.6 mL Kit (onpro) SUBCUT (13:48)
== END 2024-10-06 23:59 | disposition home or self-care (01) ==
PROVIDERS: Nurse Practitioner Family; PCP Family Medicine; Visit Provider Internal Medicine
DX: Z53.9 Procedure and treatment not carried out, unspecified reason; Z51.12 Encounter for antineoplastic immunotherapy; Z51.11 Encounter for antineoplastic chemotherapy; C34.92 Malignant neoplasm of unspecified part of left bronchus or lung; C32.1 Malignant neoplasm of supraglottis; C10.9 Malignant neoplasm of oropharynx, unspecified; C78.7 Secondary malignant neoplasm of liver and intrahepatic bile duct; R03.0 Elevated blood-pressure reading, without diagnosis of hypertension; J01.90 Acute sinusitis, unspecified; Z79.899 Other long term (current) drug therapy
CPT/HCPCS: 36591; 80053; 84443; 85007; 85025; 96375; 96377; 96401; 96413; 96417; 99213; 99214; A4222; J0185; J1100; J1200; J2469; J2506; J3490; J7040; J7050; J9045; J9271; J9305; J9999

== ENCOUNTER 2024-10-27 07:30 | Oncology outpatient (recurring) (ONCR) | payer MEDICARE, OTHER, SELFPAY ==
[2024-10-13 13:29] LABS: Hematocrit 25.3 % (36-47); Hemoglobin 8.40 g/dL (11.27-16.99); Mean Corpuscular HGB Conc 33.2 g/dL (30-55); Mean Corpuscular Hemoglobin 29.4 pg (27-33); Mean Corpuscular Volume 88.5 fl (85-98); Platelet Count 129 10^3/cmm (157-399); Red Blood Count 2.86 10^6/uL (3.85-5.65); White Blood Count 1.86 10^3/uL (3.29-11.43)
[2024-10-13 13:50] LABS: Alanine Aminotransferase 23 U/L (0-33); Albumin Level 3.7 g/dL (3.5-5.2); Alkaline Phosphatase 113 U/L (35-105); Anion Gap 15.7 (5-19); Aspartate Amino Transferase 25 U/L (0-32); Blood Urea Nitrogen 33 mg/dL (8-23); Calcium 8.4 mg/dL (8.5-10.5); Carbon Dioxide 21 mmol/L (22-29); Chloride 94 mmol/L (98-107); Creatinine Clr Calc Pharmacy 37.4846; Globulin 2.1 g/dL (1.3-4.6); Glucose 129 mg/dL (65-115); Osmolality Calculated 271 mOsm/kg (285-295); Potassium 4.7 mmol/L (3.5-5.1); Sodium 126 mmol/L (136-145); Total Protein 5.8 g/dL (6.6-8.7)
[2024-10-13 14:24] LABS: Slide Review Slide Review Perform
[2024-10-13 14:25] LABS: Absolute Segmented Neutrophil 0.7 10/cmm (1.6-7.1); Band Neutrophils Absolute 0.2 10^3/cmm (0.0-1.2); Total Cells Counted 100 (0-100)
[2024-10-13 14:27] LABS: Hypersegmented Polys Trace
[2024-10-27 08:13] LABS: Hematocrit 25.3 % (36-47); Hemoglobin 8.30 g/dL (11.27-16.99); Mean Corpuscular HGB Conc 32.8 g/dL (30-55); Mean Corpuscular Hemoglobin 29.7 pg (27-33); Mean Corpuscular Volume 90.7 fl (85-98); Nucleated Red Blood Cells % 0 %; Platelet Count 442 10^3/cmm (157-399); Red Blood Count 2.79 10^6/uL (3.85-5.65); White Blood Count 9.56 10^3/uL (3.29-11.43)
[2024-10-27 08:45] LABS: Alanine Aminotransferase 18 U/L (0-33); Albumin Level 3.9 g/dL (3.5-5.2); Alkaline Phosphatase 110 U/L (35-105); Anion Gap 17.3 (5-19); Aspartate Amino Transferase 20 U/L (0-32); Blood Urea Nitrogen 26 mg/dL (8-23); Calcium 9.6 mg/dL (8.5-10.5); Carbon Dioxide 20 mmol/L (22-29); Chloride 102 mmol/L (98-107); Creatinine Clr Calc Pharmacy 51.7150; Globulin 2.8 g/dL (1.3-4.6); Glucose 141 mg/dL (65-115); Osmolality Calculated 287 mOsm/kg (285-295); Potassium 4.3 mmol/L (3.5-5.1); Sodium 135 mmol/L (136-145); Thyroid Stimulating Hormone 0.40 uIU/mL (0.27-4.20); Total Protein 6.7 g/dL (6.6-8.7)
[2024-10-27] MEDS: aprepitant 130 mg/18 ml SDV IVP (09:59)
[2024-10-27] MEDS: diphenhydrAMINE 50 mg/mL SDV 1mL 25 MG IVP (10:08)
[2024-10-27] MEDS: pembrolizumab 200 MG in sodium chloride 0.9% 250 ML 516 MG IV (10:41)
[2024-10-27] MEDS: PEMETREXED DISODIUM IV (11:32)
[2024-10-27] MEDS: SODIUM CHLORIDE 0.9% IV ×2 (11:32→12:10)
[2024-10-27] MEDS: CARBOPLATIN IV (12:10)
[2024-10-27] MEDS: pegfilgrastim 6 mg/0.6 mL Kit (onpro) SUBCUT (13:34)
[2024-10-27 17:30] VITALS: BP 126/66; PULSE 68; RESP 16; TEMP 36.4; O2SAT 96
== END 2024-10-27 23:59 | disposition home or self-care (01) ==
PROVIDERS: Internal Medicine; PCP Family Medicine; Visit Provider Internal Medicine
DX: Z51.11 Encounter for antineoplastic chemotherapy; Z51.12 Encounter for antineoplastic immunotherapy; C34.92 Malignant neoplasm of unspecified part of left bronchus or lung; R91.8 Other nonspecific abnormal finding of lung field; D64.9 Anemia, unspecified; R19.7 Diarrhea, unspecified; Z79.899 Other long term (current) drug therapy; Z79.52 Long term (current) use of systemic steroids; Z87.891 Personal history of nicotine dependence; Z53.9 Procedure and treatment not carried out, unspecified reason
CPT/HCPCS: 36591; 80053; 84443; 85007; 85025; 96375; 96377; 96413; 96417; 99213; 99214; A4222; J0185; J1100; J1200; J2469; J2506; J3490; J7040; J7050; J9045; J9271; J9305; J9999

== ENCOUNTER 2024-11-03 09:17 | Oncology outpatient (recurring) (ONCR) | payer MEDICARE, OTHER, SELFPAY ==
[2024-11-03 09:42] LABS: Hematocrit 22.7 % (36-47); Hemoglobin 7.30 g/dL (11.27-16.99); Mean Corpuscular HGB Conc 32.2 g/dL (30-55); Mean Corpuscular Hemoglobin 29.8 pg (27-33); Mean Corpuscular Volume 92.7 fl (85-98); Nucleated Red Blood Cells % 0 %; Platelet Count 103 10^3/cmm (157-399); Red Blood Count 2.45 10^6/uL (3.85-5.65); White Blood Count 5.49 10^3/uL (3.29-11.43)
[2024-11-03 09:59] LABS: Alanine Aminotransferase 20 U/L (0-33); Albumin Level 3.7 g/dL (3.5-5.2); Alkaline Phosphatase 126 U/L (35-105); Anion Gap 15.7 (5-19); Aspartate Amino Transferase 29 U/L (0-32); Blood Urea Nitrogen 25 mg/dL (8-23); Calcium 9.2 mg/dL (8.5-10.5); Carbon Dioxide 22 mmol/L (22-29); Chloride 99 mmol/L (98-107); Creatinine Clr Calc Pharmacy 51.7150; Globulin 2.3 g/dL (1.3-4.6); Glucose 87 mg/dL (65-115); Magnesium 1.7 mg/dL (1.7-2.3); Osmolality Calculated 278 mOsm/kg (285-295); Potassium 4.7 mmol/L (3.5-5.1); Sodium 132 mmol/L (136-145); Total Protein 6.0 g/dL (6.6-8.7)
[2024-11-03 10:21] LABS: Slide Review Slide Review Perform
[2024-11-03 11:21] LABS: Ferritin 950 ng/mL (15-150); Iron 122 ug/dL (37-145); Total Iron Binding Capacity 257 mcg/dl; Unsaturated Iron Binding 135 ug/dL (112-347)
[2024-11-03 12:41] LABS: Vitamin B12 > 2000 pg/mL (232-1245)
== END 2024-11-06 23:59 | disposition home or self-care (01) ==
LOC: ONCMED 09:18
PROVIDERS: PCP Family Medicine; Visit Provider Internal Medicine
DX: C34.92 Malignant neoplasm of unspecified part of left bronchus or lung (principal); D64.9 Anemia, unspecified; Z79.899 Other long term (current) drug therapy; Z87.891 Personal history of nicotine dependence; R19.7 Diarrhea, unspecified; I49.8 Other specified cardiac arrhythmias
CPT/HCPCS: 36591; 80053; 82607; 82728; 82746; 83010; 83540; 83550; 83615; 83735; 85025; 99214

== ENCOUNTER 2024-12-01 08:54 | Oncology outpatient (recurring) (ONCR) | payer MEDICARE, OTHER, SELFPAY | END 2024-12-06 23:59 | disposition home or self-care (01) | PROVIDERS: PCP Family Medicine; Visit Provider Internal Medicine | DX: C34.92 Malignant neoplasm of unspecified part of left bronchus or lung (principal); I67.1 Cerebral aneurysm, nonruptured; Z87.891 Personal history of nicotine dependence; Z79.899 Other long term (current) drug therapy | CPT/HCPCS: 99214 ==

== ENCOUNTER 2024-12-08 07:50 | Oncology outpatient (recurring) (ONCR) | payer MEDICARE, OTHER, SELFPAY ==
[2024-12-08 08:06] LABS: Hematocrit 32.9 % (36-47); Hemoglobin 10.50 g/dL (11.27-16.99); Mean Corpuscular HGB Conc 31.9 g/dL (30-55); Mean Corpuscular Hemoglobin 31.3 pg (27-33); Mean Corpuscular Volume 98.2 fl (85-98); Nucleated Red Blood Cells % 0 %; Platelet Count 266 10^3/cmm (157-399); Red Blood Count 3.35 10^6/uL (3.85-5.65); White Blood Count 5.98 10^3/uL (3.29-11.43)
[2024-12-08 08:25] LABS: Alanine Aminotransferase 17 U/L (0-33); Albumin Level 4.5 g/dL (3.5-5.2); Alkaline Phosphatase 106 U/L (35-105); Anion Gap 20.3 (5-19); Aspartate Amino Transferase 27 U/L (0-32); Blood Urea Nitrogen 28 mg/dL (8-23); Calcium 9.8 mg/dL (8.5-10.5); Carbon Dioxide 20 mmol/L (22-29); Chloride 99 mmol/L (98-107); Creatinine Clr Calc Pharmacy 52.0737; Globulin 2.7 g/dL (1.3-4.6); Glucose 127 mg/dL (65-115); Osmolality Calculated 287 mOsm/kg (285-295); Potassium 4.3 mmol/L (3.5-5.1); Sodium 135 mmol/L (136-145); Total Protein 7.2 g/dL (6.6-8.7)
[2024-12-08] MEDS: aprepitant 130 mg/18 ml SDV IVP (10:04)
[2024-12-08] MEDS: diphenhydrAMINE 50 mg/mL SDV 1mL 25 MG IVP (10:10)
[2024-12-08] MEDS: cyanocobalamin 1,000 mcg/mL SDV 1000 MCG IM (10:24)
[2024-12-08 10:44] VITALS: BP 179/91; PULSE 79; RESP 16; TEMP 36.1; O2SAT 96
[2024-12-08] MEDS: pembrolizumab 200 MG in sodium chloride 0.9% 250 ML 516 MG IV (10:45)
[2024-12-08] MEDS: SODIUM CHLORIDE 0.9% IV ×2 (11:28→12:08)
[2024-12-08] MEDS: PEMETREXED DISODIUM IV (11:28)
[2024-12-08] MEDS: CARBOPLATIN IV (12:08)
[2024-12-08] MEDS: pegfilgrastim 6 mg/0.6 mL Kit (onpro) SUBCUT (13:37)
[2024-12-08 13:42] VITALS: BP 136/77; PULSE 79; RESP 16; TEMP 35.9; O2SAT 98
== END 2024-12-08 23:59 | disposition home or self-care (01) ==
PROVIDERS: PCP Family Medicine; Visit Provider Internal Medicine
DX: Z51.11 Encounter for antineoplastic chemotherapy (principal); Z51.12 Encounter for antineoplastic immunotherapy; C34.92 Malignant neoplasm of unspecified part of left bronchus or lung; D64.9 Anemia, unspecified; R03.0 Elevated blood-pressure reading, without diagnosis of hypertension; Z79.899 Other long term (current) drug therapy; Z79.52 Long term (current) use of systemic steroids; Z87.891 Personal history of nicotine dependence; Z95.828 Presence of other vascular implants and grafts
CPT/HCPCS: 80053; 85025; 96372; 96375; 96377; 96413; 96415; 99214; A4222; J0185; J1100; J1200; J2469; J2506; J3420; J3490; J7040; J7050; J9045; J9271; J9305; J9999

== ENCOUNTER 2024-12-15 08:53 | Oncology outpatient (recurring) (ONCR) | payer MEDICARE, OTHER, SELFPAY ==
[2024-12-15 09:18] LABS: Hematocrit 29.5 % (36-47); Hemoglobin 9.50 g/dL (11.27-16.99); Mean Corpuscular HGB Conc 32.2 g/dL (30-55); Mean Corpuscular Hemoglobin 31.4 pg (27-33); Mean Corpuscular Volume 97.4 fl (85-98); Nucleated Red Blood Cells % 0 %; Platelet Count 85 10^3/cmm (157-399); Red Blood Count 3.03 10^6/uL (3.85-5.65); White Blood Count 9.90 10^3/uL (3.29-11.43)
[2024-12-15 09:34] LABS: Alanine Aminotransferase 23 U/L (0-33); Albumin Level 4.2 g/dL (3.5-5.2); Alkaline Phosphatase 134 U/L (35-105); Anion Gap 16.3 (5-19); Aspartate Amino Transferase 33 U/L (0-32); Blood Urea Nitrogen 29 mg/dL (8-23); Calcium 9.3 mg/dL (8.5-10.5); Carbon Dioxide 22 mmol/L (22-29); Chloride 101 mmol/L (98-107); Creatinine Clr Calc Pharmacy 52.0737; Globulin 2.1 g/dL (1.3-4.6); Glucose 106 mg/dL (65-115); Osmolality Calculated 286 mOsm/kg (285-295); Potassium 4.3 mmol/L (3.5-5.1); Sodium 135 mmol/L (136-145); Total Protein 6.3 g/dL (6.6-8.7)
[2024-12-15 09:53] LABS: Slide Review Slide Review Perform
== END 2025-01-06 23:59 | disposition home or self-care (01) ==
PROVIDERS: Nurse Practitioner Family; PCP Family Medicine; Visit Provider Internal Medicine
DX: C34.92 Malignant neoplasm of unspecified part of left bronchus or lung (principal); Z87.891 Personal history of nicotine dependence; D64.9 Anemia, unspecified; I67.1 Cerebral aneurysm, nonruptured; R91.8 Other nonspecific abnormal finding of lung field; R03.0 Elevated blood-pressure reading, without diagnosis of hypertension
CPT/HCPCS: 36591; 80053; 85025; 99214

== ENCOUNTER → 2024-12-22 13:52 | Outpatient (BNVA) | payer MEDICARE, OTHER, SELFPAY | PROVIDERS: PCP Nurse Practitioner Family; Visit Provider Internal Medicine Cardiovascular Disease | DX: R00.1 Bradycardia, unspecified (principal); I49.8 Other specified cardiac arrhythmias; I10 Essential (primary) hypertension; E78.5 Hyperlipidemia, unspecified; I73.9 Peripheral vascular disease, unspecified; I25.2 Old myocardial infarction; I67.1 Cerebral aneurysm, nonruptured; C34.90 Malignant neoplasm of unspecified part of unspecified bronchus or lung; I26.99 Other pulmonary embolism without acute cor pulmonale | CPT/HCPCS: 99214 ==

== ENCOUNTER 2025-02-23 09:02 | Oncology outpatient (recurring) (ONCR) | payer MEDICARE, OTHER, SELFPAY ==
--- NOTE | 2025-02-23 13:30 | USCV_ITS ---
Augustina Quispe Age: 75 Gender: F : 1950 Exam Date: 02/23/2025 09:21 Ordering Phys: Lara Shah MD ([email or web address]) Technologist: [place] [facility] [place]: cp sob BP: 138 / 66 HR: 77 Rhythm: Sinus Technical Quality: Adequate MEASUREMENTS (Male / Female) Normal Values 2D ECHO LV Diastolic Diameter PLAX 3.8 cm 4.2 - 5.9 / 3.9 - 5.3 cm IVS Diastolic Thickness 1.2 cm 0.6 - 1.0 / 0.6 - 0.9 cm IVS Systolic Thickness 1.7 cm LVPW Diastolic Thickness 1.1 cm 0.6 - 1.0 / 0.6 - 0.9 cm LVPW Systolic Thickness 1.6 cm LVOT Diameter 1.9 cm LV Ejection Fraction 2D Teich 57.5 % LV Ejection Fraction MOD 4C 60.6 % LV Ejection Fraction MOD 2C 48.1 % LV Ejection Fraction 2C AL 49.8 % LA Diameter 2.7 cm RA Systolic Volume 4C AL 32.9 ml RA Systolic Volume 4C MOD 29.5 ml Aorta at Sinotubular Diameter 3.2 cm IVC Diameter 1.3 cm M-MODE LA Ao Ratio MM 1.4 AV Cusp Separation MM 1.9 cm DOPPLER AV Peak Velocity 170.0 cm/s LVOT Peak Velocity 87.0 cm/s AV Area Cont Eq vti 2.1 cm squared AV Area Cont Eq pk 1.5 cm squared MV Peak Velocity 176.0 cm/s MV Area PHT 4.2 cm squared Mitral E to A Ratio 1.1 TV Peak Velocity 270.5 cm/s TR Peak Velocity 323.0 cm/s TR Peak Gradient 41.7 mmHg TV Peak E Velocity 149.0 cm/s PV Peak Velocity 104.0 cm/s FINDINGS Left Ventricle Normal left ventricular size, systolic function and wall thickness, with no regional wall motion abnormalities. Left ventricular ejection fraction is estimated at 60 %. Grade II/IV diastolic dysfunction, moderately elevated filling pressures. Right Ventricle Normal right ventricular size and systolic function. Right Atrium Normal right atrial size. Left Atrium Moderately increased left atrial size. IA Septum Normal appearance of the interatrial septum. Mitral Valve Severe mitral annular calcification. Moderately thickened mitral valve. No mitral valve stenosis. Trace mitral valve regurgitation. Aortic Valve Moderate aortic valve calcification. Mild aortic valve stenosis, mean gradient 4.2 mmHg, IRVIN 2.1 cm squared. Trace aortic valve regurgitation. Tricuspid Valve Normal tricuspid valve structure. No tricuspid valve stenosis or regurgitation. Normal pulmonary pressure. Pulmonic Valve Normal pulmonic valve structure. No pulmonic valve stenosis or regurgitation. Pericardium No pericardial effusion. Aorta Normal diameter of the aortic root and ascending thoracic aorta. IVC Normal IVC diameter. CONCLUSIONS Normal left ventricular size, systolic function and wall thickness, with no regional wall motion abnormalities. Left ventricular ejection fraction is estimated at 60 %. Grade II/IV diastolic dysfunction, moderately elevated filling pressures. Moderate aortic valve calcification. Mild aortic valve stenosis, mean gradient 4.2 mmHg, IRVIN 2.1 cm squared. Trace aortic valve regurgitation. Severe mitral annular calcification. Moderately thickened mitral valve. No mitral valve stenosis. Trace mitral valve regurgitation. There is no pericardial effusion. Right atrial pressure is around 5 mm of mercury. Lara Sahh MD (Electronically Signed) Final Date: 09 March 2025 19:33 S
== END 2025-03-08 23:59 | disposition home or self-care (01) ==
LOC: RAD 09:03 → ONCMED 02-27 09:39
PROVIDERS: PCP Nurse Practitioner Family; Visit Provider Internal Medicine
DX: R07.9 Chest pain, unspecified (principal); R06.02 Shortness of breath; R93.1 Abnormal findings on diagnostic imaging of heart and coronary circulation; I51.7 Cardiomegaly; I34.81 Nonrheumatic mitral (valve) annulus calcification; I35.8 Other nonrheumatic aortic valve disorders; I35.0 Nonrheumatic aortic (valve) stenosis
CPT/HCPCS: 93306